=== PATIENT | male | born 1985 | race Caucasian/White ===

== ENCOUNTER 2018-12-14 07:13 | Observation (INO) | payer BC ==
[2018-12-14] MEDS ORDERED: Sodium Chloride 0.9% 1,000 ML IV ONE (07:19)
[2018-12-14] MEDS ORDERED: Ondansetron 4 MG/2 ML SDV ONE (07:19)
[2018-12-14] MEDS ORDERED: Sodium Chloride 0.9% 2.5 ML Syringe FLUSH PRN (07:19)
[2018-12-14] MEDS ORDERED: Sodium Chloride 0.9% 10 ML Syringe FLUSH PRN (07:19)
[2018-12-14] MEDS ORDERED: Ondansetron 4 MG/2 ML SDV IVPUSH ONE (07:19)
[2018-12-14] MEDS ORDERED: Morphine 2 MG/ML Syringe IVPUSH ONE ×2 (07:23→14:44)
[2018-12-14] MEDS ORDERED: Pantoprazole 40 MG Vial IVPUSH ONE (07:23)
--- NOTE | 2018-12-14 07:24 | EDM.PDOC ---
ED HPI GENERAL MEDICAL PROBLEM - General Chief Complaint: Abdominal Pain Stated Complaint: ABDOMINAL PAIN, VOMITING, DIARRHEA Time Seen by Provider: 12/14/18 07:15 - History of Present Illness INITIAL COMMENTS - FREE TEXT/NARRATIVE: HISTORY AND PHYSICAL: History of present illness: The patient is a 33-year-old male who presents with complaints of mid abdominal pain vomiting and diarrhea that started last night. The patient states that he had a normal day yesterday without any systemic issues and he ate fine had a bowel movement had no fevers or chills. He said that last night before bed he started having some mid abdominal pain which was vague and he went to sleep and then he woke up in the middle the night with more severe mid abdominal pain which is across his mid abdomen not localizing right or left high or low associated with nausea vomiting and diarrhea. The diarrhea is watery but it is not black or bloody and the vomitus is also not black or bloody. He did not take anything for this pain nausea vomiting or diarrhea and is only abdominal surgical history is of an umbilical hernia. He has no GI history no history of food intolerance no flank pain and no urinary. He says the pain as a burning pain and he does not feel bloated. Review of systems: As per history of present illness and below otherwise all systems reviewed and negative. Past medical history: As per history of present illness and as reviewed below otherwise noncontributory. Surgical history: As per history of present illness and as reviewed below otherwise noncontributory. Social history: No reported history of drug or alcohol abuse. Family history: As per history of present illness and as reviewed below otherwise noncontributory. Physical exam: General: Well-developed well-nourished overweight man who is nontoxic and vital signs are reviewed by me. Initially on my evaluation he was actively vomiting clear fluid when I went in the room. He looks uncomfortable and is mildly diaphoretic HEENT: Atraumatic, normocephalic, pupils reactive, negative for conjunctival pallor or scleral icterus, mucous membranes moist, throat clear, neck supple, nontender, trachea midline. Lungs: Clear to auscultation, breath sounds equal bilaterally, chest nontender. Heart: S1S2, regular rate and rhythm no overt murmurs Abdomen: Soft, nondistended, no sounds are hyperactive and there is no tympany on percussion. There is moderate mid abdominal tenderness and generalized mild abdominal tenderness without localization right or left high or low. There is no rebound or guarding Negative for masses or hepatosplenomegaly. Negative for costovertebral tenderness. Pelvis: Stable nontender. Genitourinary: Deferred. Rectal: Deferred. Extremities: Atraumatic, negative for cords or calf pain. Neurovascular unremarkable. Neuro: Awake, alert, oriented. Cranial nerves II through XII unremarkable. Cerebellum unremarkable. Motor and sensory unremarkable throughout. Exam nonfocal. Diagnostics: CBC CMP amylase lipase UA with reflex lactic acid CT scan of the abdomen and pelvis Therapeutics: IV fluids Zofran and morphine Protonix fentanyl Flagyl Patient initially still had pain after the morphine but had no more vomiting. The fentanyl obliterated his pain and he is now pain-free and we are currently waiting the CT scan results. The patient has not had any diarrhea here in the ED. 0916: This was discussed with Dr. Delaney; she would like observation admission and a dose of Flagyl. The patient is aware of all testing results and agrees with admission Impression: Abdominal pain with vomiting and diarrhea, acute enteritis, elevated lipase Definitive disposition and diagnosis as appropriate pending reevaluation and review of above. abdominal pain Pain Score (Numeric/FACES): 10 - Related Data Allergies Allergy/AdvReac Type Severity Reaction Status Date / Time No Known Allergies Allergy Verified 12/14/18 07:19 Home Meds: Home Meds . [No Known Home Meds] 12/14/18 [History] ED ROS GENERAL - Review of Systems Review Of Systems: ROS reveals no pertinent complaints other than HPI. ED EXAM, GENERAL - Physical Exam Exam: See Below (See dictation) Course - Vital Signs Last Recorded V/S: Last Vital Signs Temp 35.4 C 12/14/18 07:19 Pulse 88 12/14/18 07:19 Resp 22 H 12/14/18 07:19 BP 161/95 H 12/14/18 07:19 Pulse Ox 98 12/14/18 07:19 - Orders/Labs/Meds Orders: Active Orders 24 hr Category Date Time Status Patient Status [ADT] Stat ADT 12/14/18 09:18 Ordered Sodium Chloride 0.9% [Normal Saline] 1,000 ml Med 12/14/18 09:15 Active IV ASDIRECTED Sodium Chloride 0.9% [Saline Flush] Med 12/14/18 07:19 Active 10 ml FLUSH ASDIRECTED PRN Sodium Chloride 0.9% [Saline Flush] Med 12/14/18 07:19 Active 2.5 ml FLUSH ASDIRECTED PRN metroNIDAZOLE/Normal Saline [Flagyl 500 MG in NS 100 ML Med 12/14/18 09:18 Ordered ] 500 mg Premix Bag 1 bag IV ONETIME Saline Lock Insert [OM.PC] Stat Oth 12/14/18 07:18 Ordered Medication Orders Sodium Chloride (Normal Saline) 1,000 mls @ 150 mls/hr IV ASDIRECTED JANET Last Admin: 12/14/18 09:17 Dose: 150 mls/hr Sodium Chloride (Saline Flush) 10 ml FLUSH ASDIRECTED PRN PRN Reason: Keep Vein Open Sodium Chloride (Saline Flush) 2.5 ml FLUSH ASDIRECTED PRN PRN Reason: Keep Vein Open Labs: Laboratory Tests 12/14/18 12/14/18 12/14/18 Range/Units 07:29 07:29 07:29 WBC 12.23 H (4.0-11.0) K/uL RBC 5.51 (4.50-5.90) M/uL Hgb 17.3 H (13.0-17.0) g/dL Hct 50.6 H (38.0-50.0) % MCV 91.8 (80.0-98.0) fL MCH 31.4 (27.0-32.0) pg MCHC 34.2 (31.0-37.0) g/dL RDW Std Deviation 44.0 (28.0-62.0) fl RDW Coeff of Helen 13 (11.0-15.0) % Plt Count 322 (150-400) K/uL MPV 10.00 (7.40-12.00) fL Add Manual Diff YES Neutrophils % (Manual) 48 (48.0-80.0) % Band Neutrophils % 3 % Lymphocytes % (Manual) 40 (16.0-40.0) % Monocytes % (Manual) 6 (0.0-15.0) % Eosinophils % (Manual) 2 (0.0-7.0) % Basophils % (Manual) 1 (0.0-1.5) % Nucleated RBC % 0.0 /100WBC Absolute Seg Neuts 5.9 H (1.4-5.7) Band Neutrophils # 0.4 Lymphocytes # (Manual) 4.9 H (0.6-2.4) Monocytes # (Manual) 0.7 (0.0-0.8) Eosinophils # (Manual) 0.2 (0.0-0.7) Basophils # (Manual) 0.1 (0.0-0.1) Nucleated RBCs # 0 K/uL Lactate 2.5 H (0.20-2.00) mmol/L Sodium 139 (136-148) mmol/L Potassium 4.0 (3.5-5.1) mmol/L Chloride 103 (98-107) mmol/L Carbon Dioxide 22.5 (21.0-32.0) mmol/L BUN 14 (7.0-18.0) mg/dL Creatinine 1.0 (0.8-1.3) mg/dL Est Cr Clr Drug Dosing 117.63 mL/min Estimated GFR (MDRD) > 60.0 ml/min Glucose 154 H (74-106) mg/dL Calcium 8.7 (8.5-10.1) mg/dL Total Bilirubin 0.2 (0.2-1.0) mg/dL AST 19 (15-37) IU/L ALT 41 (14-63) IU/L Alkaline Phosphatase 72 (46-116) U/L Total Protein 7.9 (6.4-8.2) g/dL Albumin 3.4 (3.4-5.0) g/dL Globulin 4.5 H (2.6-4.0) g/dL Albumin/Globulin Ratio 0.8 L (0.9-1.6) Amylase 75 (25-115) U/L Lipase 939 H (73-393) U/L Urine Color Urine Appearance Urine pH (5.0-8.0) Ur Specific Scott (1.001-1.035) Urine Protein (NEGATIVE) mg/dL Urine Glucose (UA) (NEGATIVE) mg/dL Urine Ketones (NEGATIVE) mg/dL Urine Occult Blood (NEGATIVE) Urine Nitrite (NEGATIVE) Urine Bilirubin (NEGATIVE) Urine Urobilinogen (<2.0) EU/dL Ur Leukocyte Esterase (NEGATIVE) 12/14/18 Range/Units 08:37 WBC (4.0-11.0) K/uL RBC (4.50-5.90) M/uL Hgb (13.0-17.0) g/dL Hct (38.0-50.0) % MCV (80.0-98.0) fL MCH (27.0-32.0) pg MCHC (31.0-37.0) g/dL RDW Std Deviation (28.0-62.0) fl RDW Coeff of Helen (11.0-15.0) % Plt Count (150-400) K/uL MPV (7.40-12.00) fL Add Manual Diff Neutrophils % (Manual) (48.0-80.0) % Band Neutrophils % % Lymphocytes % (Manual) (16.0-40.0) % Monocytes % (Manual) (0.0-15.0) % Eosinophils % (Manual) (0.0-7.0) % Basophils % (Manual) (0.0-1.5) % Nucleated RBC % /100WBC Absolute Seg Neuts (1.4-5.7) Band Neutrophils # Lymphocytes # (Manual) (0.6-2.4) Monocytes # (Manual) (0.0-0.8) Eosinophils # (Manual) (0.0-0.7) Basophils # (Manual) (0.0-0.1) Nucleated RBCs # K/uL Lactate (0.20-2.00) mmol/L Sodium (136-148) mmol/L Potassium (3.5-5.1) mmol/L Chloride (98-107) mmol/L Carbon Dioxide (21.0-32.0) mmol/L BUN (7.0-18.0) mg/dL Creatinine (0.8-1.3) mg/dL Est Cr Clr Drug Dosing mL/min Estimated GFR (MDRD) ml/min Glucose (74-106) mg/dL Calcium (8.5-10.1) mg/dL Total Bilirubin (0.2-1.0) mg/dL AST (15-37) IU/L ALT (14-63) IU/L Alkaline Phosphatase (46-116) U/L Total Protein (6.4-8.2) g/dL Albumin (3.4-5.0) g/dL Globulin (2.6-4.0) g/dL Albumin/Globulin Ratio (0.9-1.6) Amylase (25-115) U/L Lipase (73-393) U/L Urine Color YELLOW Urine Appearance CLEAR Urine pH 5.0 (5.0-8.0) Ur Specific Scott 1.025 (1.001-1.035) Urine Protein NEGATIVE (NEGATIVE) mg/dL Urine Glucose (UA) NEGATIVE (NEGATIVE) mg/dL Urine Ketones NEGATIVE (NEGATIVE) mg/dL Urine Occult Blood NEGATIVE (NEGATIVE) Urine Nitrite NEGATIVE (NEGATIVE) Urine Bilirubin NEGATIVE (NEGATIVE) Urine Urobilinogen 0.2 (<2.0) EU/dL Ur Leukocyte Esterase NEGATIVE (NEGATIVE) Meds: Medications Generic Name Dose Route Start Last Admin Trade Name Freq PRN Reason Stop Dose Admin Sodium Chloride 1,000 mls @ 150 mls/hr 12/14/18 09:15 12/14/18 09:17 Normal Saline IV 150 mls/hr ASDIRECTED JANET Administration Sodium Chloride 10 ml 12/14/18 07:19 Saline Flush FLUSH ASDIRECTED PRN Keep Vein Open Sodium Chloride 2.5 ml 12/14/18 07:19 Saline Flush FLUSH ASDIRECTED PRN Keep Vein Open Discontinued Medications Generic Name Dose Route Start Last Admin Trade Name Freq PRN Reason Stop Dose Admin Fentanyl 50 mcg 12/14/18 08:00 12/14/18 08:06 Sublimaze IVPUSH 12/14/18 08:01 50 mcg ONETIME ONE Administration Sodium Chloride 1,000 mls @ 999 mls/hr 12/14/18 07:19 12/14/18 07:38 Normal Saline IV 12/14/18 08:19 999 mls/hr STAT ONE Administration Sodium Chloride Confirm 12/14/18 07:31 Normal Saline Administered 12/14/18 07:32 Dose 20 mls @ as directed .ROUTE .STK-MED ONE Iopamidol 100 ml 12/14/18 08:26 12/14/18 08:26 Isovue Multipack-370 (76%) IVPUSH 12/14/18 08:27 100 ml ONETIME STA Administration Morphine Sulfate 4 mg 12/14/18 07:23 12/14/18 07:35 Morphine IVPUSH 12/14/18 07:24 4 mg ONETIME ONE Administration Ondansetron HCl 4 mg 12/14/18 07:19 12/14/18 07:38 Zofran IVPUSH 12/14/18 07:20 4 mg ONETIME ONE Administration Ondansetron HCl Confirm 12/14/18 07:19 12/14/18 07:55 Zofran Administered 12/14/18 07:20 Not Given Dose 4 mg .ROUTE .STK-MED ONE Pantoprazole Sodium 80 mg 12/14/18 07:23 12/14/18 07:35 Protonix Iv IVPUSH 12/14/18 07:24 80 mg .BOLUS ONE Administration Departure - Departure Time of Disposition: 09:20 Disposition: Refer to Observation Condition: Good Clinical Impression: Enteritis, Elevated lipase - Discharge Information Referrals: PCP,None [Primary Care Provider] - Forms: ED Department Discharge - My Orders Last 24 Hours: My Active Orders 12/14/18 07:18 Saline Lock Insert [OM.PC] Stat 12/14/18 07:19 Sodium Chloride 0.9% [Saline Flush] 10 ml FLUSH ASDIRECTED PRN Sodium Chloride 0.9% [Saline Flush] 2.5 ml FLUSH ASDIRECTED PRN 12/14/18 09:15 Sodium Chloride 0.9% [Normal Saline] 1,000 ml IV ASDIRECTED 12/14/18 09:18 Patient Status [ADT] Stat metroNIDAZOLE/Normal Saline [Flagyl 500 MG in NS 100 ML] 500 mg Premix Bag 1 bag IV ONETIME - Assessment/Plan Last 24 Hours: My Active Orders 12/14/18 07:18 Saline Lock Insert [OM.PC] Stat 12/14/18 07:19 Sodium Chloride 0.9% [Saline Flush] 10 ml FLUSH ASDIRECTED PRN Sodium Chloride 0.9% [Saline Flush] 2.5 ml FLUSH ASDIRECTED PRN 12/14/18 09:15 Sodium Chloride 0.9% [Normal Saline] 1,000 ml IV ASDIRECTED 12/14/18 09:18 Patient Status [ADT] Stat metroNIDAZOLE/Normal Saline [Flagyl 500 MG in NS 100 ML] 500 mg Premix Bag 1 bag IV ONETIME
[2018-12-14] MEDS ORDERED: Sodium Chloride 0.9% 20 ML ONE (07:31)
[2018-12-14 07:52] LABS: BLOOD UREA NITROGEN,BUN 14 mg/dL (7.0-18.0); CARBON DIOXIDE,CO2 22.5 mmol/L (21.0-32.0); CHLORIDE,CL 103 mmol/L (98-107); GLUCOSE RANDOM 154 mg/dL (74-106); LIPASE 939 U/L (73-393); SODIUM,NA 139 mmol/L (136-148)
[2018-12-14] MEDS ORDERED: fentaNYL 100 MCG/2 ML SDV IVPUSH ONE (08:00)
[2018-12-14] MEDS ORDERED: Iopamidol 755 MG/ML 500 ML Multipack Bottle IVPUSH STA (08:26)
--- NOTE | 2018-12-14 09:10 | CT ---
INDICATION: Pain. Vomiting. Diarrhea. TECHNIQUE: CT of the abdomen and pelvis performed after IV injection of 100 mL of Isovue-370. FINDINGS: Mild soft tissue prominence in the right breast partially visualized and could be related to gynecomastia measuring 1.8 cm on image 1. This could be correlated clinically. Moderate diffuse fatty infiltration of liver. Mild adenopathy in the portacaval, philipp hepatis and right celiac axis region nonspecific. Small amount of free fluid in the pelvis posteriorly is abnormal in a male patient. The appendix is normal. Small amounts of fluid and hazy edematous or inflammatory stranding in the abdominal and pelvic mesentery. This is predominantly seen about scattered mildly thick-walled normal caliber to mildly dilated small bowel loops ranging up to 3.3 cm in diameter. The small bowel more distally is normal to small in caliber. Findings would suggest a mild acute enteritis which could be infectious or inflammatory given the patient`s age. Schema enteritis would be unlikely in a patient of this age. I would favor the mild prominence of the small bowel being related to an ileus rather than early obstruction. Focal irregularity involving the periumbilical anterior abdominal wall may be related prior surgery. Remainder negative. IMPRESSION: 1. Small to mildly dilated small bowel loops in the abdomen and pelvis with mild wall thickening with surrounding edematous and inflammatory hazy increased density in the mesentery as well as a very small amount of free fluid in the abdomen and pelvis including the mesenteric findings would be consistent with an acute enteritis. I suspect there is a superimposed very mild small bowel ileus rather than a partial small bowel obstruction. Acute infectious or inflammatory enteritis is strongly favored. 2. Small amount of nodular density partially visualized in the right breast could be related to gynecomastia but can be correlated clinically. 3. Mild adenopathy right mid and upper abdomen. Other findings as above. Please note that all CT scans at this facility use dose modulation, iterative reconstruction, and/or weight-based dosing when appropriate to reduce radiation dose to as low as reasonably achievable. Dictated by James Collado MD @ Dec 14 2018 9:07AM Signed by Dr. James Collado @ Dec 14 2018 9:09AM
[2018-12-14] MEDS: Sodium Chloride 0.9% 1,000 ML IV SCH ×2 (09:17→16:04)
[2018-12-14] MEDS ORDERED: metroNIDAZOLE/Normal Saline 500 MG in Premix Bag 1 BAG IV ONE (09:18)
--- NOTE | 2018-12-14 10:38 | PCM.HP.2 ---
H&P History of Present Illness - General Date of Service: 12/14/18 Admit Problem/Dx: Admission Diagnosis/Problem Admission Diagnosis/Problem Enteritis Source of Information: Patient History Limitations: Reports: No Limitations - History of Present Illness Initial Comments - Free Text/Narative: Patient is a 33 y/o M who comes in with c/o abdominal pain since last night which got worse this AM. Patient states that he has been experiencing diarrhea for last 1 week now, everything he ate he would experience watery diarrhea. Patient states that he experienced severe poain in his lower abdomen today associated with Nausea, vomiting and Diaphoresis. Denied any bloody stools, weight loss. In ER CT scan abdomen showed Enteritis. Patient denied being drinker but reported had bimng drinking episode 1 week back during a green party. Patient received IVF and IV antibiotics in ER. Patient is being admitted for further management. Onset of Symptoms: Reports: Unknown/Unsure Duration of Symptoms: Reports: Day(s):, Improving Location: Reports: Abdomen Quality: Reports: Sharp, Throbbing abdominal pain Pain Score (Numeric/FACES): 10 - Related Data Allergies/Adverse Reactions: Allergies Allergy/AdvReac Type Severity Reaction Status Date / Time No Known Allergies Allergy Verified 12/14/18 09:55 Home Medications: Home Meds . [No Known Home Meds] 12/14/18 [History] Past Medical History HEENT History: Reports: None Cardiovascular History: Reports: Hypertension Respiratory History: Reports: Sleep Apnea Genitourinary History: Reports: None Musculoskeletal History: Reports: None Neurological History: Reports: None Psychiatric History: Reports: None Endocrine/Metabolic History: Reports: None Hematologic History: Reports: None Immunologic History: Reports: None Oncologic (Cancer) History: Reports: None Dermatologic History: Reports: None - Infectious Disease History Infectious Disease History: Reports: None - Past Surgical History HEENT Surgical History: Reports: None Cardiovascular Surgical History: Reports: None Respiratory Surgical History: Reports: None GI Surgical History: Reports: Hernia, Abdominal Male Surgical History: Reports: None Endocrine Surgical History: Reports: None Neurological Surgical History: Reports: None Musculoskeletal Surgical History: Reports: None Oncologic Surgical History: Reports: None Dermatological Surgical History: Reports: None Social & Family History - Family History Family Medical History: Noncontributory - Tobacco Use Smoking Status *Q: Former Smoker Years of Tobacco use: 1 Used Tobacco, but Quit: Yes Month/Year Tobacco Last Used: 2008 Second Hand Smoke Exposure: Yes - Caffeine Use Caffeine Use: Reports: Coffee, Energy Drinks, Soda, Tea - Recreational Drug Use Recreational Drug Use: No H&P Review of Systems - Review of Systems: Review Of Systems: ROS reveals no pertinent complaints other than HPI. Exam - Exam Exam: See Below - Vital Signs Vital Signs: Last Vital Signs Temp 36.1 C 12/14/18 09:28 Pulse 82 12/14/18 09:28 Resp 18 12/14/18 09:28 BP 125/54 L 12/14/18 09:28 Pulse Ox 96 12/14/18 09:28 Weight: 178.534 kg - Exam General: Alert, Oriented HEENT: Conjunctiva Clear, Mucosa Moist & [place] Neck: Supple, Trachea Midline Lungs: Clear to Auscultation, Normal Respiratory Effort Cardiovascular: Regular Rate, Regular Rhythm GI/Abdominal Exam: Normal Bowel Sounds, Soft, Distended (obese ), Tender (mild tenderness) Extremities: Normal Inspection, Normal Range of Motion Peripheral Pulses: 3+: Dorsalis Pedis (L), Dorsalis Pedis (R) Skin: Warm, Dry - Patient Data Lab Results Last 24 hrs: Laboratory Results - last 24 hr 12/14/18 12/14/18 12/14/18 Range/Units 07:29 07:29 07:29 WBC 12.23 H (4.0-11.0) K/uL RBC 5.51 (4.50-5.90) M/uL Hgb 17.3 H (13.0-17.0) g/dL Hct 50.6 H (38.0-50.0) % MCV 91.8 (80.0-98.0) fL MCH 31.4 (27.0-32.0) pg MCHC 34.2 (31.0-37.0) g/dL RDW Std Deviation 44.0 (28.0-62.0) fl RDW Coeff of Helen 13 (11.0-15.0) % Plt Count 322 (150-400) K/uL MPV 10.00 (7.40-12.00) fL Add Manual Diff YES Neutrophils % (Manual) 48 (48.0-80.0) % Band Neutrophils % 3 % Lymphocytes % (Manual) 40 (16.0-40.0) % Monocytes % (Manual) 6 (0.0-15.0) % Eosinophils % (Manual) 2 (0.0-7.0) % Basophils % (Manual) 1 (0.0-1.5) % Nucleated RBC % 0.0 /100WBC Absolute Seg Neuts 5.9 H (1.4-5.7) Band Neutrophils # 0.4 Lymphocytes # (Manual) 4.9 H (0.6-2.4) Monocytes # (Manual) 0.7 (0.0-0.8) Eosinophils # (Manual) 0.2 (0.0-0.7) Basophils # (Manual) 0.1 (0.0-0.1) Nucleated RBCs # 0 K/uL Lactate 2.5 H (0.20-2.00) mmol/L Sodium 139 (136-148) mmol/L Potassium 4.0 (3.5-5.1) mmol/L Chloride 103 (98-107) mmol/L Carbon Dioxide 22.5 (21.0-32.0) mmol/L BUN 14 (7.0-18.0) mg/dL Creatinine 1.0 (0.8-1.3) mg/dL Est Cr Clr Drug Dosing 117.63 mL/min Estimated GFR (MDRD) > 60.0 ml/min Glucose 154 H (74-106) mg/dL Calcium 8.7 (8.5-10.1) mg/dL Total Bilirubin 0.2 (0.2-1.0) mg/dL AST 19 (15-37) IU/L ALT 41 (14-63) IU/L Alkaline Phosphatase 72 (46-116) U/L Total Protein 7.9 (6.4-8.2) g/dL Albumin 3.4 (3.4-5.0) g/dL Globulin 4.5 H (2.6-4.0) g/dL Albumin/Globulin Ratio 0.8 L (0.9-1.6) Amylase 75 (25-115) U/L Lipase 939 H (73-393) U/L Urine Color Urine Appearance Urine pH (5.0-8.0) Ur Specific Morrison (1.001-1.035) Urine Protein (NEGATIVE) mg/dL Urine Glucose (UA) (NEGATIVE) mg/dL Urine Ketones (NEGATIVE) mg/dL Urine Occult Blood (NEGATIVE) Urine Nitrite (NEGATIVE) Urine Bilirubin (NEGATIVE) Urine Urobilinogen (<2.0) EU/dL Ur Leukocyte Esterase (NEGATIVE) 12/14/18 Range/Units 08:37 WBC (4.0-11.0) K/uL RBC (4.50-5.90) M/uL Hgb (13.0-17.0) g/dL Hct (38.0-50.0) % MCV (80.0-98.0) fL MCH (27.0-32.0) pg MCHC (31.0-37.0) g/dL RDW Std Deviation (28.0-62.0) fl RDW Coeff of Helen (11.0-15.0) % Plt Count (150-400) K/uL MPV (7.40-12.00) fL Add Manual Diff Neutrophils % (Manual) (48.0-80.0) % Band Neutrophils % % Lymphocytes % (Manual) (16.0-40.0) % Monocytes % (Manual) (0.0-15.0) % Eosinophils % (Manual) (0.0-7.0) % Basophils % (Manual) (0.0-1.5) % Nucleated RBC % /100WBC Absolute Seg Neuts (1.4-5.7) Band Neutrophils # Lymphocytes # (Manual) (0.6-2.4) Monocytes # (Manual) (0.0-0.8) Eosinophils # (Manual) (0.0-0.7) Basophils # (Manual) (0.0-0.1) Nucleated RBCs # K/uL Lactate (0.20-2.00) mmol/L Sodium (136-148) mmol/L Potassium (3.5-5.1) mmol/L Chloride (98-107) mmol/L Carbon Dioxide (21.0-32.0) mmol/L BUN (7.0-18.0) mg/dL Creatinine (0.8-1.3) mg/dL Est Cr Clr Drug Dosing mL/min Estimated GFR (MDRD) ml/min Glucose (74-106) mg/dL Calcium (8.5-10.1) mg/dL Total Bilirubin (0.2-1.0) mg/dL AST (15-37) IU/L ALT (14-63) IU/L Alkaline Phosphatase (46-116) U/L Total Protein (6.4-8.2) g/dL Albumin (3.4-5.0) g/dL Globulin (2.6-4.0) g/dL Albumin/Globulin Ratio (0.9-1.6) Amylase (25-115) U/L Lipase (73-393) U/L Urine Color YELLOW Urine Appearance CLEAR Urine pH 5.0 (5.0-8.0) Ur Specific [place] 1.025 (1.001-1.035) Urine Protein NEGATIVE (NEGATIVE) mg/dL Urine Glucose (UA) NEGATIVE (NEGATIVE) mg/dL Urine Ketones NEGATIVE (NEGATIVE) mg/dL Urine Occult Blood NEGATIVE (NEGATIVE) Urine Nitrite NEGATIVE (NEGATIVE) Urine Bilirubin NEGATIVE (NEGATIVE) Urine Urobilinogen 0.2 (<2.0) EU/dL Ur Leukocyte Esterase NEGATIVE (NEGATIVE) Result Diagrams: 12/14/18 07:29 12/14/18 07:29 *Q Meaningful Use (ADM) - VTE Risk Assess *Q Each Risk Factor Represents 1 Point: Obesity ( BMI > 25 kg/m2) Total Score 1 Point Risk Factors: 1 - Problem List (1) Enteritis SNOMED Code(s): 12375990 ICD Code: K52.9 - NONINFECTIVE GASTROENTERITIS AND COLITIS, UNSPECIFIED Status: Acute Current Visit: Yes (2) Polycythemia SNOMED Code(s): 480484880 ICD Code: D75.1 - SECONDARY POLYCYTHEMIA Status: Acute Current Visit: Yes (3) LUIS (obstructive sleep apnea) SNOMED Code(s): 50609898 ICD Code: G47.33 - OBSTRUCTIVE SLEEP APNEA (ADULT) (PEDIATRIC) Status: Acute Current Visit: Yes Problem List Initiated/Reviewed/Updated: Yes Orders Last 24hrs: Active Orders 24 hr Category Date Time Status Patient Status [ADT] Stat ADT 12/14/18 09:18 Active Sodium Chloride 0.9% [Normal Saline] 1,000 ml Med 12/14/18 09:15 Active IV ASDIRECTED Sodium Chloride 0.9% [Saline Flush] Med 12/14/18 07:19 Active 10 ml FLUSH ASDIRECTED PRN Sodium Chloride 0.9% [Saline Flush] Med 12/14/18 07:19 Active 2.5 ml FLUSH ASDIRECTED PRN Saline Lock Insert [OM.PC] Stat Oth 12/14/18 07:18 Ordered Medication Orders Sodium Chloride (Normal Saline) 1,000 mls @ 150 mls/hr IV ASDIRECTED [facility] Last Admin: 12/14/18 09:17 Dose: 150 mls/hr Sodium Chloride (Saline Flush) 10 ml FLUSH ASDIRECTED PRN PRN Reason: Keep Vein Open Sodium Chloride (Saline Flush) 2.5 ml FLUSH ASDIRECTED PRN PRN Reason: Keep Vein Open Assessment/Plan Comment:: Patient comes in with c/o abdominal pain, N/V CT scan showed findings concerning for Enteritis NPO for now Patient will be continued on Metronidazole Will cont IVF Will obtain stool studies Start IV PPI Start IV ondansetron Lactate has cleared Concern for mesenteric ischemia, given patient takes testosterone and has polycythemia, higher risk for clots. Spoke to radiologist, he doesn't see any apparent arterial occlusion Will cont to monitor if abdominal pain worsens will obtain CTA abdomen cont to monitor closely CPAP at night
[2018-12-14] MEDS ORDERED: Albuterol/Ipratropium 3.0-0.5 MG/3 ML Neb Soln NEB PRN (12:02)
[2018-12-14] MEDS ORDERED: Ondansetron 4 MG/2 ML SDV IVPUSH PRN (12:12)
[2018-12-14] MEDS: Heparin Sodium 5,000 Units/ML Vial SUBCUT SCH ×2 (12:58→22:00)
[2018-12-14] MEDS: Pantoprazole 40 MG in Sodium Chloride 0.9% 10 ML IV SCH (12:59)
[2018-12-14 21:31] LABS: HEMOGLOBIN A1C 6.2 % (4.5-6.2)
[2018-12-14] MEDS: metroNIDAZOLE/Normal Saline 500 MG in Premix Bag 1 BAG IV SCH (22:00)
[2018-12-15] MEDS: Sodium Chloride 0.9% 1,000 ML IV SCH ×2 (01:04→10:05)
[2018-12-15] MEDS: Heparin Sodium 5,000 Units/ML Vial SUBCUT SCH ×2 (05:25→12:54)
[2018-12-15] MEDS: metroNIDAZOLE/Normal Saline 500 MG in Premix Bag 1 BAG IV SCH ×2 (05:25→14:02)
[2018-12-15 05:49] LABS: BLOOD UREA NITROGEN,BUN 17 mg/dL (7.0-18.0); CARBON DIOXIDE,CO2 26.8 mmol/L (21.0-32.0); CHLORIDE,CL 105 mmol/L (98-107); GLUCOSE RANDOM 131 mg/dL (74-106); LIPASE 112 U/L (73-393); POTASSIUM,K 3.9 mmol/L (3.5-5.1); SODIUM,NA 139 mmol/L (136-148)
[2018-12-15] MEDS ORDERED: Magnesium Oxide 400 MG Tab PO ONE (09:05)
--- NOTE | 2018-12-15 10:02 | PCM.PN ---
- General Info Date of Service: 12/15/18 Admission Dx/Problem (Free Text): Admission Diagnosis/Problem Admission Diagnosis/Problem Enteritis Subjective Update: Patient seen at bedside. No complaints, feels hungry and wants to eat. Functional Status: Reports: Pain Controlled, Tolerating Diet, Urinating - Review of Systems General: Denies: Fever, Weakness HEENT: Denies: Dysphasia, Rhinitis Pulmonary: Denies: Shortness of Breath, Pleuritic Chest Pain Cardiovascular: Denies: Chest Pain, Palpitations Gastrointestinal: Reports: Nausea. Denies: Abdominal Pain, Decreased Appetite, Diarrhea Genitourinary: Denies: Frequency, Burning Musculoskeletal: Denies: Shoulder Pain, Arm Pain, Hand Pain Skin: Denies: Cyanosis, Jaundice, Mottled - Patient Data Vitals - Most Recent: Last Vital Signs Temp 36.6 C 12/15/18 04:00 Pulse 66 12/15/18 04:00 Resp 18 12/15/18 04:00 BP 136/71 12/15/18 04:00 Pulse Ox 96 12/15/18 04:00 Weight - Most Recent: 178.534 kg I&O - Last 24 Hours: Intake & Output 12/14/18 12/15/18 12/15/18 22:59 06:59 14:59 Intake Total 755 170 Output Total 575 475 Balance 180 -305 Lab Results Last 24 Hours: Laboratory Results - last 24 hr 12/14/18 12/14/18 12/15/18 Range/Units 07:29 11:47 05:15 WBC 8.56 (4.0-11.0) K/uL RBC 4.50 (4.50-5.90) M/uL Hgb 13.8 (13.0-17.0) g/dL Hct 42.6 (38.0-50.0) % MCV 94.7 (80.0-98.0) fL MCH 30.7 (27.0-32.0) pg MCHC 32.4 (31.0-37.0) g/dL RDW Std Deviation 46.2 (28.0-62.0) fl RDW Coeff of Helen 13 (11.0-15.0) % Plt Count 250 (150-400) K/uL MPV 9.80 (7.40-12.00) fL Neut % (Auto) 55.2 (48.0-80.0) % Lymph % (Auto) 27.9 (16.0-40.0) % [place] % (Auto) 5.4 (0.0-15.0) % Eos % (Auto) 11.3 H (0.0-7.0) % Baso % (Auto) 0.2 (0.0-1.5) % Neut # (Auto) 4.7 (1.4-5.7) K/uL Lymph # (Auto) 2.4 (0.6-2.4) K/uL [place] # (Auto) 0.5 (0.0-0.8) K/uL Eos # (Auto) 1.0 H (0.0-0.7) K/uL Baso # (Auto) 0.0 (0.0-0.1) K/uL Nucleated RBC % 0.0 /100WBC Nucleated RBCs # 0 K/uL Lactate 1.9 (0.20-2.00) mmol/L Sodium (136-148) mmol/L Potassium (3.5-5.1) mmol/L Chloride (98-107) mmol/L Carbon Dioxide (21.0-32.0) mmol/L BUN (7.0-18.0) mg/dL Creatinine (0.8-1.3) mg/dL Est Cr Clr Drug Dosing mL/min Estimated GFR (MDRD) ml/min Glucose (74-106) mg/dL Hemoglobin A1c 6.2 (4.5-6.2) % Calcium (8.5-10.1) mg/dL Phosphorus (2.6-4.7) mg/dL Magnesium (1.8-2.4) mg/dL Triglycerides (0-200) mg/dL Cholesterol (50-200) mg/dL LDL Cholesterol, Calc (60-180) mg/dL VLDL Cholesterol (5-55) mg/dL HDL Cholesterol (40-60) mg/dL Cholesterol/HDL Ratio (3.3-6.0) Lipase (73-393) U/L 12/15/18 Range/Units 05:15 WBC (4.0-11.0) K/uL RBC (4.50-5.90) M/uL Hgb (13.0-17.0) g/dL Hct (38.0-50.0) % MCV (80.0-98.0) fL MCH (27.0-32.0) pg MCHC (31.0-37.0) g/dL RDW Std Deviation (28.0-62.0) fl RDW Coeff of Helen (11.0-15.0) % Plt Count (150-400) K/uL MPV (7.40-12.00) fL Neut % (Auto) (48.0-80.0) % Lymph % (Auto) (16.0-40.0) % [place] % (Auto) (0.0-15.0) % Eos % (Auto) (0.0-7.0) % Baso % (Auto) (0.0-1.5) % Neut # (Auto) (1.4-5.7) K/uL Lymph # (Auto) (0.6-2.4) K/uL [place] # (Auto) (0.0-0.8) K/uL Eos # (Auto) (0.0-0.7) K/uL Baso # (Auto) (0.0-0.1) K/uL Nucleated RBC % /100WBC Nucleated RBCs # K/uL Lactate (0.20-2.00) mmol/L Sodium 139 (136-148) mmol/L Potassium 3.9 (3.5-5.1) mmol/L Chloride 105 (98-107) mmol/L Carbon Dioxide 26.8 (21.0-32.0) mmol/L BUN 17 (7.0-18.0) mg/dL Creatinine 1.0 (0.8-1.3) mg/dL Est Cr Clr Drug Dosing 117.63 mL/min Estimated GFR (MDRD) > 60.0 ml/min Glucose 131 H (74-106) mg/dL Hemoglobin A1c (4.5-6.2) % Calcium 8.2 L (8.5-10.1) mg/dL Phosphorus 3.9 (2.6-4.7) mg/dL Magnesium 1.7 L (1.8-2.4) mg/dL Triglycerides 309 H (0-200) mg/dL Cholesterol 179 (50-200) mg/dL LDL Cholesterol, Calc 90 (60-180) mg/dL VLDL Cholesterol 61 H (5-55) mg/dL HDL Cholesterol 27 L (40-60) mg/dL Cholesterol/HDL Ratio 6.6 H (3.3-6.0) Lipase 112 (73-393) U/L Med Orders - Current: Current Medications Albuterol/Ipratropium (Duoneb 3.0-0.5 Mg/3 Ml) 3 ml NEB Q4HRRT PRN PRN Reason: Shortness Of Breath/wheezing Heparin Sodium (Porcine) (Heparin Sodium) 5,000 units SUBCUT Q8H [facility] Last Admin: 12/15/18 05:25 Dose: 5,000 units Sodium Chloride (Normal Saline) 1,000 mls @ 125 mls/hr IV ASDIRECTED [facility] Last Admin: 12/15/18 01:04 Dose: 150 mls/hr Pantoprazole Sodium 40 mg/ (Sodium Chloride) 10 mls @ 300 mls/hr IV DAILY [facility] Last Admin: 12/14/18 12:59 Dose: 300 mls/hr Metronidazole 500 mg/ Premix 100 mls @ 100 mls/hr IV Q8H [facility] Last Admin: 12/15/18 05:25 Dose: 100 mls/hr Ondansetron HCl (Zofran) 4 mg IVPUSH Q6H PRN PRN Reason: Nausea/Vomiting Sodium Chloride (Saline Flush) 10 ml FLUSH ASDIRECTED PRN PRN Reason: Keep Vein Open Sodium Chloride (Saline Flush) 2.5 ml FLUSH ASDIRECTED PRN PRN Reason: Keep Vein Open Discontinued Medications Fentanyl (Sublimaze) 50 mcg IVPUSH ONETIME ONE Stop: 12/14/18 08:01 Last Admin: 12/14/18 08:06 Dose: 50 mcg Sodium Chloride (Normal Saline) 1,000 mls @ 999 mls/hr IV STAT ONE Stop: 12/14/18 08:19 Last Admin: 12/14/18 07:38 Dose: 999 mls/hr Sodium Chloride (Normal Saline) Confirm Administered Dose 20 mls @ as directed .ROUTE .STK-MED ONE Stop: 12/14/18 07:32 Last Admin: 12/14/18 10:42 Dose: Not Given Metronidazole 500 mg/ Premix 100 mls @ 100 mls/hr IV ONETIME ONE Stop: 12/14/18 10:17 Last Admin: 12/14/18 09:25 Dose: 100 mls/hr Metronidazole 500 mg/ Premix 100 mls @ 100 mls/hr IV QID JANET Iopamidol (Isovue Multipack-370 (76%)) 100 ml IVPUSH ONETIME STA Stop: 12/14/18 08:27 Last Admin: 12/14/18 08:26 Dose: 100 ml Magnesium Oxide (Magnesium Oxide) 400 mg PO ONETIME ONE Stop: 12/15/18 09:06 Morphine Sulfate (Morphine) 4 mg IVPUSH ONETIME ONE Stop: 12/14/18 07:24 Last Admin: 12/14/18 07:35 Dose: 4 mg Morphine Sulfate (Morphine) 1 mg IVPUSH ONETIME ONE Stop: 12/14/18 14:45 Last Admin: 12/14/18 14:53 Dose: 1 mg Ondansetron HCl (Zofran) 4 mg IVPUSH ONETIME ONE Stop: 12/14/18 07:20 Last Admin: 12/14/18 07:38 Dose: 4 mg Ondansetron HCl (Zofran) Confirm Administered Dose 4 mg .ROUTE .STK-MED ONE Stop: 12/14/18 07:20 Last Admin: 12/14/18 07:55 Dose: Not Given Pantoprazole Sodium (Protonix Iv) 80 mg IVPUSH .BOLUS ONE Stop: 12/14/18 07:24 Last Admin: 12/14/18 07:35 Dose: 80 mg - Exam General: Alert, Oriented HEENT: Mucous Membr. Moist/[place] Neck: Supple, Trachea Midline Lungs: Clear to Auscultation, Normal Respiratory Effort Cardiovascular: Regular Rate, Regular Rhythm GI/Abdominal Exam: Normal Bowel Sounds, Soft, Non-Tender, No Organomegaly Peripheral Pulses: 3+: Dorsalis Pedis (L), Dorsalis Pedis (R) Skin: Warm, Dry - Problem List & Annotations (1) Enteritis SNOMED Code(s): 09906887 Code(s): K52.9 - NONINFECTIVE GASTROENTERITIS AND COLITIS, UNSPECIFIED Status: Acute Current Visit: Yes (2) Polycythemia SNOMED Code(s): 040793255 Code(s): D75.1 - SECONDARY POLYCYTHEMIA Status: Acute Current Visit: Yes (3) LUIS (obstructive sleep apnea) SNOMED Code(s): 44964047 Code(s): G47.33 - OBSTRUCTIVE SLEEP APNEA (ADULT) (PEDIATRIC) Status: Acute Current Visit: Yes - Problem List Review Problem List Initiated/Reviewed/Updated: Yes - My Orders Last 24 Hours: My Active Orders 12/14/18 12:02 Ambulate [RC] ASDIRECTED Oxygen Therapy [RC] PRN VTE/DVT Education [RC] PER UNIT ROUTINE Vital Signs [RC] Q4H Albuterol/Ipratropium [DuoNeb 3.0-0.5 MG/3 ML] 3 ml NEB Q4HRRT PRN Resuscitation Status Routine 12/14/18 12:09 RT Aerosol Therapy [RC] ASDIRECTED 12/14/18 12:12 Ondansetron [Zofran] 4 mg IVPUSH Q6H PRN 12/14/18 12:14 Pantoprazole [ProTONIX IV] 40 mg Sodium Chloride 0.9% [Normal Saline] 10 ml IV DAILY 12/14/18 12:15 Heparin Sodium 5,000 units SUBCUT Q8H 12/14/18 18:20 Communication Order [RC] PRN 12/14/18 21:00 CPAP [RESPCARE] Routine 12/14/18 22:00 metroNIDAZOLE/Normal Saline [Flagyl 500 MG in NS 100 ML] 500 mg Premix Bag 1 bag IV Q8H 12/14/18 Dinner Nothing per Oral Now Diet [DIET] - Plan Plan:: Patient comes in with c/o abdominal pain, N/V CT scan showed findings concerning for Enteritis symptoms improving Will advance diet Cont IVF for now Switch to oral metro Stool studies pending cont PPI cont ondansetron Lactate has cleared Concern for mesenteric ischemia, given patient takes testosterone and has polycythemia, higher risk for clots. Spoke to radiologist, he doesn't see any apparent arterial occlusion Will cont to monitor if abdominal pain worsens will obtain CTA abdomen cont to monitor closely CPAP at night If tolerates diet will d/c later today
[2018-12-15] MEDS: Pantoprazole 40 MG in Sodium Chloride 0.9% 10 ML IV SCH (10:10)
[2018-12-15] MEDS ORDERED: Ondansetron 4 MG/2 ML SDV IVPUSH PRN (10:45)
--- NOTE | 2018-12-15 14:56 | PCM.DCSUM1 ---
Discharge Summary - Hospital Course HPI Initial Comments: Patient is a 33 y/o M who comes in with c/o abdominal pain since last night which got worse this AM. Patient states that he has been experiencing diarrhea for last 1 week now, everything he ate he would experience watery diarrhea. Patient states that he experienced severe pain in his lower abdomen today associated with Nausea, vomiting and Diaphoresis. Denied any bloody stools, weight loss. In ER CT scan abdomen showed Enteritis. Patient denied being drinker but reported had demarco drinking episode 1 week back during a green party. Patient received IVF and IV antibiotics in ER. Patient is being admitted for further management. Diagnosis: Stroke: No - Discharge Data Discharge Date: 12/15/18 Discharge Disposition: Home, Self-Care 01 Condition: Fair - Referral to Home Health Primary Care Physician: PCP None - Discharge Diagnosis/Problem(s) (1) Enteritis SNOMED Code(s): 16231412 ICD Code: K52.9 - NONINFECTIVE GASTROENTERITIS AND COLITIS, UNSPECIFIED Status: Acute Current Visit: Yes (2) Polycythemia SNOMED Code(s): 444064065 ICD Code: D75.1 - SECONDARY POLYCYTHEMIA Status: Acute Current Visit: Yes (3) LUIS (obstructive sleep apnea) SNOMED Code(s): 01004012 ICD Code: G47.33 - OBSTRUCTIVE SLEEP APNEA (ADULT) (PEDIATRIC) Status: Acute Current Visit: Yes - Patient Instructions Diet: GI Soft/Low Residue/Low Fiber Activity: As Tolerated, Rest and Relax Today Driving: May Drive Today Showering/Bathing: May Shower Notify Provider of: Nausea and/or Vomiting - Discharge Plan *PRESCRIPTION DRUG MONITORING PROGRAM REVIEWED*: Not Applicable *COPY OF PRESCRIPTION DRUG MONITORING REPORT IN PATIENT SHIRA: Not Applicable Prescriptions/Med Rec: metroNIDAZOLE [Flagyl] 500 mg PO Q8H 5 Days #14 tab Ondansetron [Zofran ODT] 4 mg PO Q8H PRN #5 tab.dis PRN Reason: Nausea/Vomiting Pantoprazole [ProTONIX] 40 mg PO DAILY #15 tab.cr Home Medications: Home Meds Ondansetron [Zofran ODT] 4 mg PO Q8H PRN #5 tab.dis 12/15/18 [Rx] Pantoprazole [ProTONIX] 40 mg PO DAILY #15 tab.cr 12/15/18 [Rx] metroNIDAZOLE [Flagyl] 500 mg PO Q8H 5 Days #14 tab 12/15/18 [Rx] Patient Handouts: Ondansetron tablets, Food Choices to Help Relieve Diarrhea, Adult, Abdominal Pain, Adult, [id number], Pantoprazole tablets, Metronidazole tablets or capsules Referrals: Shyla Moffett MD [Resident] - 12/24/18 3:00 pm - Discharge Summary/Plan Comment DC Time >30 min.: Yes Discharge Summary/Plan Comment: Patient is a 33 y/o M who comes in with c/o abdominal pain since last night which got worse this AM. Patient states that he has been experiencing diarrhea for last 1 week now, everything he ate he would experience watery diarrhea. Patient states that he experienced severe pain in his lower abdomen today associated with Nausea, vomiting and Diaphoresis. Denied any bloody stools, weight loss. In ER CT scan abdomen showed Enteritis. Patient denied being drinker but reported had demarco drinking episode 1 week back during a green party. Lipase was elevated. Patient received IVF and IV antibiotics in ER. Patient was admitted to Med-Surg department for management of pancreatitis/Enteritis. Stool studies were ordered. Patient was started on IVF and IV Flagyl. There was a concern of possible mesenteric ischemia given his polycythemia and h/o taking testosterone, upon talking to radiologist, no obvious findings suggestive of mesenteric ischemia were found on CT scan. Plan was made to observe patient closely, if he doesn't improve would obtain CTA abdomen to better assess the vasculature. Patient symptoms improved, he was able to tolerate diet well and had no abdominal symptoms, so CTA was not obtained. Patients Lipase was normal next day. patient is being discharged as recommended to f/u with PC and GI specialist upon dc/ - Patient Data Vitals - Most Recent: Last Vital Signs Temp 36.2 C 12/15/18 12:00 Pulse 70 12/15/18 08:00 Resp 18 12/15/18 12:00 BP 134/66 12/15/18 12:00 Pulse Ox 96 12/15/18 12:02 Weight - Most Recent: 178.534 kg I&O - Last 24 hours: Intake & Output 12/14/18 12/15/18 12/15/18 22:59 06:59 14:59 Intake Total 755 170 Output Total 575 475 Balance 180 -305 Lab Results - Last 24 hrs: Laboratory Results - last 24 hr 12/14/18 12/15/18 12/15/18 Range/Units 07:29 05:15 05:15 WBC 8.56 (4.0-11.0) K/uL RBC 4.50 (4.50-5.90) M/uL Hgb 13.8 (13.0-17.0) g/dL Hct 42.6 (38.0-50.0) % MCV 94.7 (80.0-98.0) fL MCH 30.7 (27.0-32.0) pg MCHC 32.4 (31.0-37.0) g/dL RDW Std Deviation 46.2 (28.0-62.0) fl RDW Coeff of Helen 13 (11.0-15.0) % Plt Count 250 (150-400) K/uL MPV 9.80 (7.40-12.00) fL Neut % (Auto) 55.2 (48.0-80.0) % Lymph % (Auto) 27.9 (16.0-40.0) % [place] % (Auto) 5.4 (0.0-15.0) % Eos % (Auto) 11.3 H (0.0-7.0) % Baso % (Auto) 0.2 (0.0-1.5) % Neut # (Auto) 4.7 (1.4-5.7) K/uL Lymph # (Auto) 2.4 (0.6-2.4) K/uL [place] # (Auto) 0.5 (0.0-0.8) K/uL Eos # (Auto) 1.0 H (0.0-0.7) K/uL Baso # (Auto) 0.0 (0.0-0.1) K/uL Nucleated RBC % 0.0 /100WBC Nucleated RBCs # 0 K/uL Sodium 139 (136-148) mmol/L Potassium 3.9 (3.5-5.1) mmol/L Chloride 105 (98-107) mmol/L Carbon Dioxide 26.8 (21.0-32.0) mmol/L BUN 17 (7.0-18.0) mg/dL Creatinine 1.0 (0.8-1.3) mg/dL Est Cr Clr Drug Dosing 117.63 mL/min Estimated GFR (MDRD) > 60.0 ml/min Glucose 131 H (74-106) mg/dL Hemoglobin A1c 6.2 (4.5-6.2) % Calcium 8.2 L (8.5-10.1) mg/dL Phosphorus 3.9 (2.6-4.7) mg/dL Magnesium 1.7 L (1.8-2.4) mg/dL Triglycerides 309 H (0-200) mg/dL Cholesterol 179 (50-200) mg/dL LDL Cholesterol, Calc 90 (60-180) mg/dL VLDL Cholesterol 61 H (5-55) mg/dL HDL Cholesterol 27 L (40-60) mg/dL Cholesterol/HDL Ratio 6.6 H (3.3-6.0) Lipase 112 (73-393) U/L Med Orders - Current: Current Medications Albuterol/Ipratropium (Duoneb 3.0-0.5 Mg/3 Ml) 3 ml NEB Q4HRRT PRN PRN Reason: Shortness Of Breath/wheezing Heparin Sodium (Porcine) (Heparin Sodium) 5,000 units SUBCUT Q8H [facility] Last Admin: 12/15/18 12:54 Dose: 5,000 units Sodium Chloride (Normal Saline) 1,000 mls @ 125 mls/hr IV ASDIRECTED [facility] Last Admin: 12/15/18 10:05 Dose: 150 mls/hr Pantoprazole Sodium 40 mg/ (Sodium Chloride) 10 mls @ 300 mls/hr IV DAILY [facility] Last Admin: 12/15/18 10:10 Dose: 300 mls/hr Metronidazole 500 mg/ Premix 100 mls @ 100 mls/hr IV Q8H [facility] Last Admin: 12/15/18 14:02 Dose: 100 mls/hr Ondansetron HCl (Zofran) 4 mg IVPUSH Q6H PRN PRN Reason: Nausea/Vomiting Ondansetron HCl (Zofran) 4 mg IVPUSH Q6H PRN PRN Reason: Nausea/Vomiting Sodium Chloride (Saline Flush) 10 ml FLUSH ASDIRECTED PRN PRN Reason: Keep Vein Open Sodium Chloride (Saline Flush) 2.5 ml FLUSH ASDIRECTED PRN PRN Reason: Keep Vein Open Discontinued Medications Fentanyl (Sublimaze) 50 mcg IVPUSH ONETIME ONE Stop: 12/14/18 08:01 Last Admin: 12/14/18 08:06 Dose: 50 mcg Sodium Chloride (Normal Saline) 1,000 mls @ 999 mls/hr IV STAT ONE Stop: 12/14/18 08:19 Last Admin: 12/14/18 07:38 Dose: 999 mls/hr Sodium Chloride (Normal Saline) Confirm Administered Dose 20 mls @ as directed .ROUTE .STK-MED ONE Stop: 12/14/18 07:32 Last Admin: 12/14/18 10:42 Dose: Not Given Metronidazole 500 mg/ Premix 100 mls @ 100 mls/hr IV ONETIME ONE Stop: 12/14/18 10:17 Last Admin: 12/14/18 09:25 Dose: 100 mls/hr Metronidazole 500 mg/ Premix 100 mls @ 100 mls/hr IV QID JANET Iopamidol (Isovue Multipack-370 (76%)) 100 ml IVPUSH ONETIME STA Stop: 12/14/18 08:27 Last Admin: 12/14/18 08:26 Dose: 100 ml Magnesium Oxide (Magnesium Oxide) 400 mg PO ONETIME ONE Stop: 12/15/18 09:06 Last Admin: 12/15/18 10:10 Dose: 400 mg Morphine Sulfate (Morphine) 4 mg IVPUSH ONETIME ONE Stop: 12/14/18 07:24 Last Admin: 12/14/18 07:35 Dose: 4 mg Morphine Sulfate (Morphine) 1 mg IVPUSH ONETIME ONE Stop: 12/14/18 14:45 Last Admin: 12/14/18 14:53 Dose: 1 mg Ondansetron HCl (Zofran) 4 mg IVPUSH ONETIME ONE Stop: 12/14/18 07:20 Last Admin: 12/14/18 07:38 Dose: 4 mg Ondansetron HCl (Zofran) Confirm Administered Dose 4 mg .ROUTE .STK-MED ONE Stop: 12/14/18 07:20 Last Admin: 12/14/18 07:55 Dose: Not Given Pantoprazole Sodium (Protonix Iv) 80 mg IVPUSH .BOLUS ONE Stop: 12/14/18 07:24 Last Admin: 12/14/18 07:35 Dose: 80 mg
[2018-12-15] MEDS ORDERED: metroNIDAZOLE/Normal Saline 500 MG in Premix Bag 1 BAG IV SCH (18:00)
== END 2018-12-15 15:40 | disposition home or self-care (01) ==
LOC: MW.ED 07:13 → MW.MS 09:31
PROVIDERS: ADMIT Student in an Organized Health Care Education/Training Program; ATTEND Student in an Organized Health Care Education/Training Program
DX: K52.9 Noninfective gastroenteritis and colitis, unspecified (principal); D75.1 Secondary polycythemia; G47.33 Obstructive sleep apnea (adult) (pediatric); I10 Essential (primary) hypertension; Z87.891 Personal history of nicotine dependence
CPT/HCPCS: 36415; 74177; 80048; 80053; 80061; 81003; 82150; 83036; 83605; 83690; 83735; 84100; 85025; 96361; 96365; 96366; 96372; 96375; 96376; 99285; A9270; C9113; G0378; J1644; J2270; J2405; J3010; J3490; J7040; J7050; Q9967

== ENCOUNTER 2018-12-20 20:30 | Emergency (ER) | payer BC ==
--- NOTE | 2018-12-20 20:55 | EDM.PDOC ---
ED HPI GENERAL MEDICAL PROBLEM - General Chief Complaint: Abdominal Pain Stated Complaint: PAIN Time Seen by Provider: 12/20/18 20:50 - History of Present Illness INITIAL COMMENTS - FREE TEXT/NARRATIVE: HISTORY AND PHYSICAL: History of present illness: Patient 33-year-old white male presents a concern of recent diagnosis in isolation for pancreatitis and colitis who comes back with recurrent upper abdominal pain. No vomiting diarrhea or other complaints Review of systems: As per history of present illness and below otherwise all systems reviewed and negative. Past medical history: As per history of present illness and as reviewed below otherwise noncontributory. Surgical history: As per history of present illness and as reviewed below otherwise noncontributory. Social history: No reported history of drug or alcohol abuse. Family history: As per history of present illness and as reviewed below otherwise noncontributory. Physical exam: HEENT: Atraumatic, normocephalic, pupils reactive, negative for conjunctival pallor or scleral icterus, mucous membranes moist, throat clear, neck supple, nontender, trachea midline. Lungs: Clear to auscultation, breath sounds equal bilaterally, chest nontender. Heart: S1S2, regular, negative for clicks, rubs, or JVD. Abdomen: Soft, nondistended, tenderness palpation across upper abdomen. Negative for masses or hepatosplenomegaly. Negative for costovertebral tenderness. Pelvis: Stable nontender. Genitourinary: Deferred. Rectal: Deferred. Extremities: Atraumatic, negative for cords or calf pain. Neurovascular unremarkable. Neuro: Awake, alert, oriented. Cranial nerves II through XII unremarkable. Cerebellum unremarkable. Motor and sensory unremarkable throughout. Exam nonfocal. Diagnostics: CBC CMP lipase CT abdomen and pelvis chest x-ray UA UDS Therapeutics: #1 saline 1 L bolus Impression: #1 abdominal pain #2 history of colitis #3 history of pancreatitis Definitive disposition and diagnosis as appropriate pending reevaluation and review of above. abdomen Pain Score (Numeric/FACES): 6 - Related Data Allergies Allergy/AdvReac Type Severity Reaction Status Date / Time No Known Allergies Allergy Verified 12/20/18 20:38 Home Meds: Home Meds Ondansetron [Zofran ODT] 4 mg PO Q8H PRN #5 tab.dis 12/15/18 [Rx] Pantoprazole [ProTONIX] 40 mg PO DAILY #15 tab.cr 10/14/19 [Rx] metroNIDAZOLE [Flagyl] 500 mg PO Q8H 5 Days #14 tab 12/15/18 [Rx] Past Medical History HEENT History: Reports: None Cardiovascular History: Reports: Hypertension Respiratory History: Reports: Sleep Apnea, Other (See Below) Other Respiratory History: on CPAP during the night Gastrointestinal History: Reports: Pancreatitis Genitourinary History: Reports: None Musculoskeletal History: Reports: None Neurological History: Reports: None Psychiatric History: Reports: Anxiety, Depression Endocrine/Metabolic History: Reports: None Hematologic History: Reports: None Immunologic History: Reports: None Oncologic (Cancer) History: Reports: None Dermatologic History: Reports: None - Infectious Disease History Infectious Disease History: Reports: None - Past Surgical History HEENT Surgical History: Reports: None Cardiovascular Surgical History: Reports: None Respiratory Surgical History: Reports: None GI Surgical History: Reports: Hernia, Abdominal Male Surgical History: Reports: None Endocrine Surgical History: Reports: None Neurological Surgical History: Reports: None Musculoskeletal Surgical History: Reports: None Oncologic Surgical History: Reports: None Dermatological Surgical History: Reports: None Social & Family History - Family History Family Medical History: Noncontributory - Tobacco Use Smoking Status *Q: Never Smoker Second Hand Smoke Exposure: No - Caffeine Use Caffeine Use: Reports: Coffee, Soda - Recreational Drug Use Recreational Drug Use: No ED ROS GENERAL - Review of Systems Review Of Systems: ROS reveals no pertinent complaints other than HPI. ED EXAM, GENERAL - Physical Exam Exam: See Below (dictation) Course - Vital Signs Last Recorded V/S: Last Vital Signs Temp 36.0 C 12/20/18 20:34 Pulse 98 12/20/18 22:37 Resp 16 12/20/18 22:37 BP 149/75 H 12/20/18 22:37 Pulse Ox 96 12/20/18 22:37 - Orders/Labs/Meds Labs: Laboratory Tests 12/20/18 12/20/18 12/20/18 Range/Units 21:00 21:00 21:00 WBC 12.05 H (4.0-11.0) K/uL RBC 5.12 (4.50-5.90) M/uL Hgb 15.9 (13.0-17.0) g/dL Hct 47.4 (38.0-50.0) % MCV 92.6 (80.0-98.0) fL MCH 31.1 (27.0-32.0) pg MCHC 33.5 (31.0-37.0) g/dL RDW Std Deviation 44.8 (28.0-62.0) fl RDW Coeff of Helen 13 (11.0-15.0) % Plt Count 299 (150-400) K/uL MPV 9.70 (7.40-12.00) fL Add Manual Diff YES Neutrophils % (Manual) 53 (48.0-80.0) % Band Neutrophils % 1 % Lymphocytes % (Manual) 31 (16.0-40.0) % Monocytes % (Manual) 6 (0.0-15.0) % Eosinophils % (Manual) 7 (0.0-7.0) % Metamyelocytes % 1 % Myelocytes % 1 % Nucleated RBC % 0.0 /100WBC Absolute Seg Neuts 6.4 H (1.4-5.7) Band Neutrophils # 0.1 Lymphocytes # (Manual) 3.7 H (0.6-2.4) Monocytes # (Manual) 0.7 (0.0-0.8) Eosinophils # (Manual) 0.8 H (0.0-0.7) Absolute Metamyelocyte 0.1 Absolute Myelocytes 0.1 Nucleated RBCs # 0 K/uL INR 0.95 Sodium 138 (136-148) mmol/L Potassium 4.0 (3.5-5.1) mmol/L Chloride 102 (98-107) mmol/L Carbon Dioxide 26.1 (21.0-32.0) mmol/L BUN 17 (7.0-18.0) mg/dL Creatinine 1.1 (0.8-1.3) mg/dL Est Cr Clr Drug Dosing 106.94 mL/min Estimated GFR (MDRD) > 60.0 ml/min Glucose 205 H (74-106) mg/dL Calcium 9.0 (8.5-10.1) mg/dL Total Bilirubin 0.3 (0.2-1.0) mg/dL AST 28 (15-37) IU/L ALT 88 H (14-63) IU/L Alkaline Phosphatase 72 (46-116) U/L Total Protein 7.7 (6.4-8.2) g/dL Albumin 3.5 (3.4-5.0) g/dL Globulin 4.2 H (2.6-4.0) g/dL Albumin/Globulin Ratio 0.8 L (0.9-1.6) Lipase 398 H (73-393) U/L Urine Color Urine Appearance Urine pH (5.0-8.0) Ur Specific Seth (1.001-1.035) Urine Protein (NEGATIVE) mg/dL Urine Glucose (UA) (NEGATIVE) mg/dL Urine Ketones (NEGATIVE) mg/dL Urine Occult Blood (NEGATIVE) Urine Nitrite (NEGATIVE) Urine Bilirubin (NEGATIVE) Urine Urobilinogen (<2.0) EU/dL Ur Leukocyte Esterase (NEGATIVE) Urine Opiates Screen (NEGATIVE) Ur Oxycodone Screen (NEGATIVE) Urine Methadone Screen (NEGATIVE) Ur Barbiturates Screen (NEGATIVE) Ur Phencyclidine Scrn (NEGATIVE) Ur Amphetamine Screen (NEGATIVE) U Methamphetamines Scrn (NEGATIVE) U Benzodiazepines Scrn (NEGATIVE) U Cocaine Metab Screen (NEGATIVE) U Marijuana (THC) Screen (NEGATIVE) Ethyl Alcohol <3 mg/dL 12/20/18 12/20/18 Range/Units 21:05 21:05 WBC (4.0-11.0) K/uL RBC (4.50-5.90) M/uL Hgb (13.0-17.0) g/dL Hct (38.0-50.0) % MCV (80.0-98.0) fL MCH (27.0-32.0) pg MCHC (31.0-37.0) g/dL RDW Std Deviation (28.0-62.0) fl RDW Coeff of Helen (11.0-15.0) % Plt Count (150-400) K/uL MPV (7.40-12.00) fL Add Manual Diff Neutrophils % (Manual) (48.0-80.0) % Band Neutrophils % % Lymphocytes % (Manual) (16.0-40.0) % Monocytes % (Manual) (0.0-15.0) % Eosinophils % (Manual) (0.0-7.0) % Metamyelocytes % % Myelocytes % % Nucleated RBC % /100WBC Absolute Seg Neuts (1.4-5.7) Band Neutrophils # Lymphocytes # (Manual) (0.6-2.4) Monocytes # (Manual) (0.0-0.8) Eosinophils # (Manual) (0.0-0.7) Absolute Metamyelocyte Absolute Myelocytes Nucleated RBCs # K/uL INR Sodium (136-148) mmol/L Potassium (3.5-5.1) mmol/L Chloride (98-107) mmol/L Carbon Dioxide (21.0-32.0) mmol/L BUN (7.0-18.0) mg/dL Creatinine (0.8-1.3) mg/dL Est Cr Clr Drug Dosing mL/min Estimated GFR (MDRD) ml/min Glucose (74-106) mg/dL Calcium (8.5-10.1) mg/dL Total Bilirubin (0.2-1.0) mg/dL AST (15-37) IU/L ALT (14-63) IU/L Alkaline Phosphatase (46-116) U/L Total Protein (6.4-8.2) g/dL Albumin (3.4-5.0) g/dL Globulin (2.6-4.0) g/dL Albumin/Globulin Ratio (0.9-1.6) Lipase (73-393) U/L Urine Color YELLOW Urine Appearance CLEAR Urine pH 5.0 (5.0-8.0) Ur Specific Seth >= 1.030 (1.001-1.035) Urine Protein NEGATIVE (NEGATIVE) mg/dL Urine Glucose (UA) NEGATIVE (NEGATIVE) mg/dL Urine Ketones NEGATIVE (NEGATIVE) mg/dL Urine Occult Blood NEGATIVE (NEGATIVE) Urine Nitrite NEGATIVE (NEGATIVE) Urine Bilirubin NEGATIVE (NEGATIVE) Urine Urobilinogen 0.2 (<2.0) EU/dL Ur Leukocyte Esterase NEGATIVE (NEGATIVE) Urine Opiates Screen NEGATIVE (NEGATIVE) Ur Oxycodone Screen NEGATIVE (NEGATIVE) Urine Methadone Screen NEGATIVE (NEGATIVE) Ur Barbiturates Screen NEGATIVE (NEGATIVE) Ur Phencyclidine Scrn NEGATIVE (NEGATIVE) Ur Amphetamine Screen NEGATIVE (NEGATIVE) U Methamphetamines Scrn NEGATIVE (NEGATIVE) U Benzodiazepines Scrn NEGATIVE (NEGATIVE) U Cocaine Metab Screen NEGATIVE (NEGATIVE) U Marijuana (THC) Screen NEGATIVE (NEGATIVE) Ethyl Alcohol mg/dL Meds: Medications Discontinued Medications Generic Name Dose Route Start Last Admin Trade Name Freq PRN Reason Stop Dose Admin Hydromorphone HCl 1 mg 12/20/18 21:17 12/20/18 21:24 Dilaudid IVPUSH 12/20/18 21:18 1 mg ONETIME ONE Administration Sodium Chloride 1,000 mls @ 999 mls/hr 12/20/18 20:56 12/20/18 21:08 Normal Saline IV 12/20/18 21:56 999 mls/hr STAT ONE Administration Iopamidol 100 ml 12/20/18 22:02 12/20/18 22:06 Isovue-370 (76%) IVPUSH 12/20/18 22:03 100 ml ONETIME ONE Administration Ondansetron HCl 4 mg 12/20/18 21:17 12/20/18 21:24 Zofran IVPUSH 12/20/18 21:18 4 mg ONETIME ONE Administration Departure - Departure Time of Disposition: 23:59 Disposition: Home, Self-Care 01 Condition: Good Clinical Impression: Abdominal pain, Duodenitis, Pancreatitis - Discharge Information Referrals: PCP,None [Primary Care Provider] - Forms: ED Department Discharge Additional Instructions: The following information is given to patients seen in the emergency department who are being discharged to home. This information is to outline your options for follow-up care. We provide all patients seen in our emergency department with a follow-up referral. The need for follow-up, as well as the timing and circumstances, are variable depending upon the specifics of your emergency department visit. If you don't have a primary care physician on staff, we will provide you with a referral. We always advise you to contact your personal physician following an emergency department visit to inform them of the circumstance of the visit and for follow-up with them and/or the need for any referrals to a consulting specialist. The emergency department will also refer you to a specialist when appropriate. This referral assures that you have the opportunity for followup care with a specialist. All of these measure are taken in an effort to provide you with optimal care, which includes your followup. Under all circumstances we always encourage you to contact your private physician who remains a resource for coordinating your care. When calling for followup care, please make the office aware that this follow-up is from your recent emergency room visit. If for any reason you are refused follow-up, please contact the [facility] emergency department at and asked to speak to the emergency department charge nurse. Continue current meds follow primary medical doctor clear liquids as discussed avoiding alcohol return as needed as discussed
[2018-12-20] MEDS ORDERED: Sodium Chloride 0.9% 1,000 ML IV ONE (20:56)
[2018-12-20] MEDS ORDERED: Ondansetron 4 MG/2 ML SDV IVPUSH ONE (21:17)
[2018-12-20] MEDS ORDERED: HYDROmorphone 1 MG/ML Syringe IVPUSH ONE (21:17)
[2018-12-20 21:39] LABS: BLOOD UREA NITROGEN,BUN 17 mg/dL (7.0-18.0); CARBON DIOXIDE,CO2 26.1 mmol/L (21.0-32.0); CHLORIDE,CL 102 mmol/L (98-107); GLUCOSE RANDOM 205 mg/dL (74-106); LIPASE 398 U/L (73-393); SODIUM,NA 138 mmol/L (136-148)
[2018-12-20] MEDS ORDERED: Iopamidol 755 Mg/ML 100 ML Bottle IVPUSH ONE (22:02)
--- NOTE | 2018-12-20 22:16 | CR ---
INDICATION: Lower chest/upper abdominal pain TECHNIQUE: Chest 1 view. COMPARISON: None. FINDINGS: Cardiovascular and mediastinum: Heart size and vasculature are normal in caliber and appearance. Mediastinum is within normal limits. Lungs and pleural space: Lungs are clear. No sign of infiltrate or mass. No sign of pleural effusion. No pneumothorax. Bones and soft tissues: No significant findings. IMPRESSION: Unremarkable chest. Dictated by: Richmond Patel MD @ 12/20/2018 22:15:37 (Electronically Signed)
--- NOTE | 2018-12-20 23:06 | CT ---
INDICATION: 33-year-old male, abdominal pain. TECHNIQUE: CT abdomen and pelvis acquired with i.v. 100 mL Isovue 370. Coronal and sagittal reformats were obtained. COMPARISON: CT study dated 12/14/2018. FINDINGS: Manager Image CT images: Nonobstructive bowel gas pattern. Study somewhat limited by patient body size. Lower chest: Image lung bases are clear. No pleural effusions or free air. Liver: Unremarkable. Spleen: Unremarkable. Pancreas: Unremarkable. Gallbladder and bile ducts: Unremarkable. Kidneys: Unremarkable. No kidney or ureteral stones and no hydronephrosis seen. Adrenal glands: Unremarkable. GI tract: No bowel obstruction. No abnormal colonic wall thickening. Loops of small bowel are normal in caliber. No hiatal hernia or abnormal gastric or duodenal wall thickening. Duodenum crosses midline. No residual mesenteric fat stranding in the lower left central mesentery adjacent to small bowel loops, resolution from 6 days prior. No interloop ascites. Vascular: Unremarkable. No abnormal twisting of the mesenteric vessels. Normal orientation of the SMV and SMA. Portal vein branches, splenic vein, and SMV are patent. Lymph nodes: Unremarkable. Miscellaneous: Unremarkable. No pneumoperitoneum is seen. No significant ascites is noted. Pelvic Organs: Unremarkable. Bones: Unremarkable for age. IMPRESSION: 1. Interval improvement from recent CT study dated 12/14/2018. No bowel obstruction. Resolution of mesenteric stranding in the left lower quadrant adjacent to small bowel loops. There may be a minimal amount of small bowel wall thickening, consider improving small bowel enteritis from 12/14/2018. 2. Normal appendix. Dictated by Ruben Richardson MD @ 12/20/2018 11:04:32 PM Please note that all CT scans at this facility use dose modulation, iterative reconstruction, and/or weight-based dosing when appropriate to reduce radiation dose to as low as reasonably achievable. Dictated by: Ruben Richardson MD @ 12/20/2018 23:04:41 (Electronically Signed)
== END 2018-12-21 00:09 | disposition home or self-care (01) ==
LOC: MW.ED 20:30
DX: K85.90 Acute pancreatitis without necrosis or infection, unspecified (principal); K29.80 Duodenitis without bleeding; G47.30 Sleep apnea, unspecified; I10 Essential (primary) hypertension
CPT/HCPCS: 36415; 71045; 74177; 80053; 80305; 80320; 81003; 83690; 85025; 85610; 96361; 96374; 96375; 99284; J1170; J2405; J7040; Q9967; G0480

== ENCOUNTER 2018-12-21 03:27 | Observation (INO) | payer BC ==
[2018-12-21] MEDS ORDERED: Ondansetron 4 MG/2 ML SDV ONE (03:35)
[2018-12-21] MEDS ORDERED: Sodium Chloride 0.9% 1,000 ML IV ONE ×2 (03:48→04:39)
[2018-12-21] MEDS ORDERED: Ketorolac 30 MG/ML SDV IVPUSH ONE (03:48)
[2018-12-21] MEDS ORDERED: Ondansetron 4 MG/2 ML SDV IVPUSH ONE (03:48)
[2018-12-21] MEDS ORDERED: LORazepam 2 MG/ML SDV IVPUSH ONE (04:15)
--- NOTE | 2018-12-21 04:35 | EDM.PDOC ---
ED HPI GENERAL MEDICAL PROBLEM - General Chief Complaint: Abdominal Pain Stated Complaint: ABD PAIN Time Seen by Provider: 12/21/18 04:31 - History of Present Illness INITIAL COMMENTS - FREE TEXT/NARRATIVE: HISTORY AND PHYSICAL: History of present illness: Patient 33-year-old white male who was seen and admitted one week prior for pancreatitis and enteritis who was seen yesterday by myself with recurrence of the pain workup showed interval improvement of the CT regarding his left-sided mesenteric stranding he also had improvement of his lipase down from 900-300 he returns now with recurrence of the pain from the earlier visit. Review of systems: As per history of present illness and below otherwise all systems reviewed and negative. Past medical history: As per history of present illness and as reviewed below otherwise noncontributory. Surgical history: As per history of present illness and as reviewed below otherwise noncontributory. Social history: No reported history of drug or alcohol abuse. Family history: As per history of present illness and as reviewed below otherwise noncontributory. Physical exam: HEENT: Atraumatic, normocephalic, pupils reactive, negative for conjunctival pallor or scleral icterus, mucous membranes moist, throat clear, neck supple, nontender, trachea midline. Lungs: Clear to auscultation, breath sounds equal bilaterally, chest nontender. Heart: S1S2, regular, negative for clicks, rubs, or JVD. Abdomen: Soft, nondistended no localized tenderness Negative for masses or hepatosplenomegaly. Negative for costovertebral tenderness. Pelvis: Stable nontender. Genitourinary: Deferred. Rectal: Deferred. Extremities: Atraumatic, negative for cords or calf pain. Neurovascular unremarkable. Neuro: Awake, alert, oriented. Cranial nerves II through XII unremarkable. Cerebellum unremarkable. Motor and sensory unremarkable throughout. Exam nonfocal. Diagnostics: None Therapeutics: saline1 L bolus Toradol 30 mg IV Impression: #1 abdominal pain #2 resolving pancreatitis #3 resolving enteritis Definitive disposition and diagnosis as appropriate pending reevaluation and review of above. abdomen Pain Score (Numeric/FACES): 10 - Related Data Allergies Allergy/AdvReac Type Severity Reaction Status Date / Time No Known Allergies Allergy Verified 12/21/18 03:45 Home Meds: Home Meds Ondansetron [Zofran ODT] 4 mg PO Q8H PRN #5 tab.dis 12/15/18 [Rx] Pantoprazole [ProTONIX] 40 mg PO DAILY #15 tab.cr 12/15/18 [Rx] metroNIDAZOLE [Flagyl] 500 mg PO Q8H 5 Days #14 tab 12/15/18 [Rx] Past Medical History HEENT History: Reports: None Cardiovascular History: Reports: Hypertension Respiratory History: Reports: Sleep Apnea, Other (See Below) Other Respiratory History: on CPAP during the night Gastrointestinal History: Reports: Pancreatitis Genitourinary History: Reports: None Musculoskeletal History: Reports: None Neurological History: Reports: None Psychiatric History: Reports: Anxiety, Depression Endocrine/Metabolic History: Reports: None Hematologic History: Reports: None Immunologic History: Reports: None Oncologic (Cancer) History: Reports: None Dermatologic History: Reports: None - Infectious Disease History Infectious Disease History: Reports: None - Past Surgical History HEENT Surgical History: Reports: None Cardiovascular Surgical History: Reports: None Respiratory Surgical History: Reports: None GI Surgical History: Reports: Hernia, Abdominal Male Surgical History: Reports: None Endocrine Surgical History: Reports: None Neurological Surgical History: Reports: None Musculoskeletal Surgical History: Reports: None Oncologic Surgical History: Reports: None Dermatological Surgical History: Reports: None Social & Family History - Family History Family Medical History: Noncontributory - Tobacco Use Smoking Status *Q: Never Smoker Second Hand Smoke Exposure: No - Caffeine Use Caffeine Use: Reports: Coffee, Soda - Recreational Drug Use Recreational Drug Use: No ED ROS GENERAL - Review of Systems Review Of Systems: ROS reveals no pertinent complaints other than HPI. ED EXAM, GI/ABD - Physical Exam Exam: See Below (Dictation) Course - Vital Signs Last Recorded V/S: Last Vital Signs Temp 35.5 C 12/21/18 03:28 Pulse 87 12/21/18 03:28 Resp 18 12/21/18 03:28 BP 151/104 H 12/21/18 03:28 Pulse Ox 98 12/21/18 03:28 - Orders/Labs/Meds Orders: Active Orders 24 hr Category Date Time Status Sodium Chloride 0.9% [Normal Saline] 1,000 ml Med 12/21/18 03:48 Active IV .Bolus Medication Orders Sodium Chloride (Normal Saline) 1,000 mls @ 999 mls/hr IV .Bolus ONE Stop: 12/21/18 04:48 Last Admin: 12/21/18 03:52 Dose: 999 mls/hr Meds: Medications Generic Name Dose Route Start Last Admin Trade Name Freq PRN Reason Stop Dose Admin Sodium Chloride 1,000 mls @ 999 mls/hr 12/21/18 03:48 12/21/18 03:52 Normal Saline IV 12/21/18 04:48 999 mls/hr .Bolus ONE Administration Discontinued Medications Generic Name Dose Route Start Last Admin Trade Name Erasmo PRN Reason Stop Dose Admin Ketorolac Tromethamine 30 mg 12/21/18 03:48 12/21/18 03:52 Toradol IVPUSH 12/21/18 03:49 30 mg ONETIME ONE Administration Lorazepam 1 mg 12/21/18 04:15 12/21/18 04:20 Ativan IVPUSH 12/21/18 04:16 1 mg ONETIME ONE Administration Ondansetron HCl Confirm 12/21/18 03:35 12/21/18 03:53 Zofran Administered 12/21/18 03:36 Not Given Dose 4 mg .ROUTE .STK-MED ONE Ondansetron HCl 4 mg 12/21/18 03:48 12/21/18 03:53 Zofran IVPUSH 12/21/18 03:49 4 mg ONETIME ONE Administration Departure - Departure Time of Disposition: 04:35 Disposition: Home, Self-Care 01 Condition: Good Clinical Impression: Abdominal pain, Pancreatitis - Discharge Information Referrals: PCP,None [Primary Care Provider] - - My Orders Last 24 Hours: My Active Orders 12/21/18 03:48 Sodium Chloride 0.9% [Normal Saline] 1,000 ml IV .Bolus - Assessment/Plan Last 24 Hours: My Active Orders 12/21/18 03:48 Sodium Chloride 0.9% [Normal Saline] 1,000 ml IV .Bolus
[2018-12-21] MEDS ORDERED: Sodium Chloride 0.9% 1,000 ML IV SCH (04:45)
[2018-12-21] MEDS: Sodium Chloride 0.9% 1,000 ML IV SCH ×2 (06:33→20:11)
[2018-12-21] MEDS: HYDROmorphone 2 MG/ML Syringe IVPUSH PRN ×4 (07:00→18:03)
--- NOTE | 2018-12-21 07:59 | PCM.HP.2 ---
H&P History of Present Illness - General Date of Service: 12/21/18 Admit Problem/Dx: Admission Diagnosis/Problem Admission Diagnosis/Problem Abdominal pain Source of Information: Patient History Limitations: Reports: No Limitations - History of Present Illness Initial Comments - Free Text/Narative: The patient is a 33-year-old gentleman who was seen and admitted last week secondary to pancreatitis and mesenteric enteritis. The patient had been discharged after improvement. The patient then presented back to the emergency department yesterday and had been given medications, CT examination of his abdomen and pelvis and was sent home. The patient then re-presented with exacerbation of his abdominal pain today and was admitted secondary to exacerbation of pancreatitis. The patient reports that he had a bachelor's constitution party 2-1/2 weeks ago in which had consumed alcohol. The patient previously had examinations but did not show any signs of gallstones. Today the patient's lipase was elevated at 398. The patient reports that he has bandlike pain described as sharp and stabbing across his upper abdomen. The patient has had no specific aggravating or relieving factors for this. He is also denied nausea or vomiting. Onset of Symptoms: Reports: Gradual Duration of Symptoms: Reports: Day(s): Location: Reports: Abdomen Quality: Reports: Same as Previous Episode, Sharp, Stabbing Severity: Severe Improves with: Reports: Medication, Rest Worsens with: Reports: Eating Associated Symptoms: Reports: No Other Symptoms abdomen Pain Score (Numeric/FACES): 10 - Related Data Allergies/Adverse Reactions: Allergies Allergy/AdvReac Type Severity Reaction Status Date / Time No Known Allergies Allergy Verified 12/21/18 05:19 Home Medications: Home Meds Ondansetron [Zofran ODT] 4 mg PO Q8H PRN #5 tab.dis 12/15/18 [Rx] Pantoprazole [ProTONIX] 40 mg PO DAILY #15 tab.cr 12/15/18 [Rx] metroNIDAZOLE [Flagyl] 500 mg PO Q8H 5 Days #14 tab 12/15/18 [Rx] Past Medical History HEENT History: Reports: None Cardiovascular History: Reports: Hypertension Respiratory History: Reports: Sleep Apnea, Other (See Below) Other Respiratory History: on CPAP during the night Gastrointestinal History: Reports: Pancreatitis Genitourinary History: Reports: None Musculoskeletal History: Reports: None Neurological History: Reports: None Psychiatric History: Reports: Anxiety, Depression Endocrine/Metabolic History: Reports: None Hematologic History: Reports: None Immunologic History: Reports: None Oncologic (Cancer) History: Reports: None Dermatologic History: Reports: None - Infectious Disease History Infectious Disease History: Reports: None - Past Surgical History HEENT Surgical History: Reports: None Cardiovascular Surgical History: Reports: None Respiratory Surgical History: Reports: None GI Surgical History: Reports: Hernia, Abdominal Male Surgical History: Reports: None Endocrine Surgical History: Reports: None Neurological Surgical History: Reports: None Musculoskeletal Surgical History: Reports: None Oncologic Surgical History: Reports: None Dermatological Surgical History: Reports: None Social & Family History - Family History Family Medical History: Noncontributory - Tobacco Use Smoking Status *Q: Never Smoker Second Hand Smoke Exposure: No - Caffeine Use Caffeine Use: Reports: Coffee, Soda - Recreational Drug Use Recreational Drug Use: No H&P Review of Systems - Review of Systems: Review Of Systems: See Below General: Reports: No Symptoms HEENT: Reports: No Symptoms Pulmonary: Reports: No Symptoms Cardiovascular: Reports: No Symptoms Gastrointestinal: Reports: Abdominal Pain, Other (Acid reflux) Genitourinary: Reports: No Symptoms Musculoskeletal: Reports: No Symptoms Skin: Reports: No Symptoms Psychiatric: Reports: No Symptoms Neurological: Reports: No Symptoms Hematologic/Lymphatic: Reports: No Symptoms Immunologic: Reports: No Symptoms Exam - Exam Exam: See Below - Vital Signs Vital Signs: Last Vital Signs Temp 36.1 C 12/21/18 05:06 Pulse 84 12/21/18 05:06 Resp 18 12/21/18 05:06 BP 144/74 H 12/21/18 05:06 Pulse Ox 99 12/21/18 05:06 Weight: 180.53 kg - Exam Quality Assessment: No: Supplemental Oxygen General: Alert, Oriented, Cooperative, Mild Distress HEENT: Conjunctiva Clear, EACs Clear, EOMI, Hearing Intact, PERRLA. No: Mucosa Moist & [place] (Dry) Neck: Supple, Trachea Midline Lungs: Clear to Auscultation, Normal Respiratory Effort Cardiovascular: Regular Rate, Regular Rhythm, Normal S1, Normal S2 GI/Abdominal Exam: Normal Bowel Sounds, No Distention, Tender (Epigastrium), Other (Obese). No: Guarding, Rigid Back Exam: Normal Inspection, Full Range of Motion Extremities: Normal Inspection, No Pedal Edema Skin: Warm, Dry, Intact Neurological: Cranial Nerves Intact, Normal Speech, Normal Tone Neuro Extensive - Mental Status: Alert, Oriented x3 Neuro Extensive - Motor, Sensory, Reflexes: CN II-XII Intact Psychiatric: Alert, Normal Affect, Normal Mood - Problem List (1) Pancreatitis SNOMED Code(s): 14357574 ICD Code: K85.90 - ACUTE PANCREATITIS WITHOUT NECROSIS OR INFECTION, UNSP Status: Acute Priority: High Current Visit: Yes Qualifiers: Chronicity: acute Pancreatitis type: unspecified pancreatitis type Acute pancreatitis complication: no infection or necrosis Qualified Code(s): K85.90 - Acute pancreatitis without necrosis or infection, unspecified (2) Morbid obesity with BMI of 50.0-59.9, adult SNOMED Code(s): 455922063, 88042558641230 ICD Code: E66.01 - MORBID (SEVERE) OBESITY DUE TO EXCESS CALORIES; Z68.43 - BODY MASS INDEX (BMI) 50.0-59.9, ADULT Status: Chronic Priority: Medium Current Visit: Yes (3) Abdominal pain SNOMED Code(s): 16262123 ICD Code: R10.9 - UNSPECIFIED ABDOMINAL PAIN Status: Acute Priority: High Current Visit: Yes Qualifiers: Abdominal location: epigastric Qualified Code(s): R10.13 - Epigastric pain (4) Elevated lipase SNOMED Code(s): 940777773 ICD Code: R74.8 - ABNORMAL LEVELS OF OTHER SERUM ENZYMES Status: Acute Priority: High Current Visit: Yes (5) ULIS (obstructive sleep apnea) SNOMED Code(s): 70640002 ICD Code: G47.33 - OBSTRUCTIVE SLEEP APNEA (ADULT) (PEDIATRIC) Status: Chronic Priority: High Current Visit: Yes Problem List Initiated/Reviewed/Updated: Yes Orders Last 24hrs: Active Orders 24 hr Category Date Time Status Patient Status [ADT] Stat ADT 12/21/18 04:38 Active NPO Now [Nothing per Oral Now Diet] [DIET] Diet 12/21/18 Breakfast Active HYDROmorphone [Dilaudid] Med 12/21/18 05:37 Active 1 mg IVPUSH Q3H PRN Sodium Chloride 0.9% [Normal Saline] 1,000 ml Med 12/21/18 05:45 Active IV ASDIRECTED Medication Orders Hydromorphone HCl (Dilaudid) 1 mg IVPUSH Q3H PRN PRN Reason: Pain Last Admin: 12/21/18 07:00 Dose: 1 mg Sodium Chloride (Normal Saline) 1,000 mls @ 125 mls/hr IV ASDIRECTED [facility] Last Admin: 12/21/18 06:33 Dose: 125 mls/hr Assessment/Plan Comment:: The patient is a 33-year-old gentleman who had been admitted secondary to abdominal pain due to pancreatitis. The patient's previous CT had shown that the previously noted mesenteric stranding at essentially resolved. The patient will be kept nothing by mouth except for ice chips and IV fluids consisting of normal saline at 125 mL per hour. The patient will also have his pain controlled with the use of IV narcotics. DVT prophylaxis will be completed with the use of Lovenox 40 mg subcutaneous on a daily basis. The patient has been encouraged to ambulate. Depending upon the patient's symptomology he will likely have his diet advanced tomorrow. The patient also had triglycerides were elevated at 309 mg/dL and this is not likely the cause of the patient's pancreatitis. The patient should be appropriate for discharge in 1-2 days. Repeat laboratory studies been ordered. - Mortality Measure Prognosis:: Good
[2018-12-21] MEDS ORDERED: Ondansetron 4 MG/2 ML SDV IVPUSH PRN (08:03)
[2018-12-21] MEDS: Enoxaparin 40 MG/0.4 ML Syringe SUBCUT SCH (08:51)
[2018-12-21] MEDS: Ranitidine 15 MG/ML Syrup 10 ML UD Cup PO SCH ×2 (09:14→20:12)
[2018-12-21] MEDS: Insulin Aspart 100 Units/ML 3 ML Pen SUBCUT SCH ×2 (12:29→17:50)
[2018-12-22] MEDS: Sodium Chloride 0.9% 1,000 ML IV SCH (04:00)
[2018-12-22 06:10] LABS: BLOOD UREA NITROGEN,BUN 17 mg/dL (7.0-18.0); CARBON DIOXIDE,CO2 26.8 mmol/L (21.0-32.0); CHLORIDE,CL 105 mmol/L (98-107); GLUCOSE RANDOM 129 mg/dL (74-106); POTASSIUM,K 4.2 mmol/L (3.5-5.1); SODIUM,NA 140 mmol/L (136-148)
[2018-12-22] MEDS: HYDROmorphone 2 MG/ML Syringe IVPUSH PRN (06:18)
[2018-12-22] MEDS ORDERED: HYDROmorphone 1 MG/ML Syringe IVPUSH PRN (07:30)
[2018-12-22] MEDS: Insulin Aspart 100 Units/ML 3 ML Pen SUBCUT SCH ×2 (07:44→12:42)
[2018-12-22] MEDS: Enoxaparin 40 MG/0.4 ML Syringe SUBCUT SCH (08:02)
[2018-12-22] MEDS ORDERED: Morphine 2 MG/ML Syringe IVPUSH PRN (08:55)
[2018-12-22] MEDS ORDERED: Famotidine 20 MG Tab PO SCH (09:00)
[2018-12-22] MEDS ORDERED: Ketorolac 30 MG/ML SDV IVPUSH PRN (10:31)
--- NOTE | 2018-12-22 11:00 | PCM.PN ---
- General Info Date of Service: 12/22/18 Subjective Update: 33 y/o male admitted for acute pancreatitis. This morning he is doing better with pain. Rates pain 5/10. However, some intermittent discomfort. No vomiting, diarrhea. - Patient Data Vitals - Most Recent: Last Vital Signs Temp 36.5 C 12/22/18 07:33 Pulse 65 12/22/18 07:33 Resp 18 12/22/18 07:33 BP 128/64 12/22/18 07:33 Pulse Ox 96 12/22/18 07:33 Weight - Most Recent: 180.53 kg I&O - Last 24 Hours: Intake & Output 12/21/18 12/22/18 12/22/18 22:59 06:59 14:59 Intake Total 0 1351 Output Total 700 575 Balance -700 776 Lab Results Last 24 Hours: Laboratory Results - last 24 hr 12/21/18 12/21/18 12/22/18 Range/Units 12:03 16:23 05:30 WBC 9.52 (4.0-11.0) K/uL RBC 4.53 (4.50-5.90) M/uL Hgb 13.8 (13.0-17.0) g/dL Hct 42.9 (38.0-50.0) % MCV 94.7 (80.0-98.0) fL MCH 30.5 (27.0-32.0) pg MCHC 32.2 (31.0-37.0) g/dL RDW Std Deviation 47.1 (28.0-62.0) fl RDW Coeff of Helen 14 (11.0-15.0) % Plt Count 253 (150-400) K/uL MPV 9.70 (7.40-12.00) fL Add Manual Diff YES Neutrophils % (Manual) 52 (48.0-80.0) % Band Neutrophils % 1 % Lymphocytes % (Manual) 26 (16.0-40.0) % Monocytes % (Manual) 7 (0.0-15.0) % Eosinophils % (Manual) 14 H (0.0-7.0) % Nucleated RBC % 0.0 /100WBC Absolute Seg Neuts 5.0 (1.4-5.7) Band Neutrophils # 0.1 Lymphocytes # (Manual) 2.5 H (0.6-2.4) Monocytes # (Manual) 0.7 (0.0-0.8) Eosinophils # (Manual) 1.3 H (0.0-0.7) Nucleated RBCs # 0 K/uL Sodium (136-148) mmol/L Potassium (3.5-5.1) mmol/L Chloride (98-107) mmol/L Carbon Dioxide (21.0-32.0) mmol/L BUN (7.0-18.0) mg/dL Creatinine (0.8-1.3) mg/dL Est Cr Clr Drug Dosing mL/min Estimated GFR (MDRD) ml/min Glucose (74-106) mg/dL POC Glucose 90 85 (60-110) mg/dL Calcium (8.5-10.1) mg/dL Total Bilirubin (0.2-1.0) mg/dL AST (15-37) IU/L ALT (14-63) IU/L Alkaline Phosphatase (46-116) U/L Total Protein (6.4-8.2) g/dL Albumin (3.4-5.0) g/dL Globulin (2.6-4.0) g/dL Albumin/Globulin Ratio (0.9-1.6) 12/22/18 12/22/18 Range/Units 05:30 05:57 WBC (4.0-11.0) K/uL RBC (4.50-5.90) M/uL Hgb (13.0-17.0) g/dL Hct (38.0-50.0) % MCV (80.0-98.0) fL MCH (27.0-32.0) pg MCHC (31.0-37.0) g/dL RDW Std Deviation (28.0-62.0) fl RDW Coeff of Helen (11.0-15.0) % Plt Count (150-400) K/uL MPV (7.40-12.00) fL Add Manual Diff Neutrophils % (Manual) (48.0-80.0) % Band Neutrophils % % Lymphocytes % (Manual) (16.0-40.0) % Monocytes % (Manual) (0.0-15.0) % Eosinophils % (Manual) (0.0-7.0) % Nucleated RBC % /100WBC Absolute Seg Neuts (1.4-5.7) Band Neutrophils # Lymphocytes # (Manual) (0.6-2.4) Monocytes # (Manual) (0.0-0.8) Eosinophils # (Manual) (0.0-0.7) Nucleated RBCs # K/uL Sodium 140 (136-148) mmol/L Potassium 4.2 (3.5-5.1) mmol/L Chloride 105 (98-107) mmol/L Carbon Dioxide 26.8 (21.0-32.0) mmol/L BUN 17 (7.0-18.0) mg/dL Creatinine 1.0 (0.8-1.3) mg/dL Est Cr Clr Drug Dosing 117.63 mL/min Estimated GFR (MDRD) > 60.0 ml/min Glucose 129 H (74-106) mg/dL POC Glucose 118 H (60-110) mg/dL Calcium 8.1 L (8.5-10.1) mg/dL Total Bilirubin 0.3 (0.2-1.0) mg/dL AST 23 (15-37) IU/L ALT 55 (14-63) IU/L Alkaline Phosphatase 46 (46-116) U/L Total Protein 6.2 L (6.4-8.2) g/dL Albumin 2.8 L (3.4-5.0) g/dL Globulin 3.4 (2.6-4.0) g/dL Albumin/Globulin Ratio 0.8 L (0.9-1.6) Med Orders - Current: Current Medications Enoxaparin Sodium (Lovenox) 40 mg SUBCUT Q24H [facility] Last Admin: 12/22/18 08:02 Dose: 40 mg Famotidine (Pepcid) 20 mg PO BID [facility] Last Admin: 12/22/18 08:02 Dose: 20 mg Sodium Chloride (Normal Saline) 1,000 mls @ 200 mls/hr IV ASDIRECTED [facility] Last Admin: 12/22/18 04:00 Dose: 125 mls/hr Insulin Aspart (Novolog) 0 unit SUBCUT TIDAC [facility]; Protocol Last Admin: 12/22/18 07:44 Dose: Not Given Ketorolac Tromethamine (Toradol) 30 mg IVPUSH Q6H PRN PRN Reason: Pain Ondansetron HCl (Zofran) 4 mg IVPUSH Q4H PRN PRN Reason: Nausea/Vomiting Discontinued Medications Hydromorphone HCl (Dilaudid) 1 mg IVPUSH Q3H PRN PRN Reason: Pain Last Admin: 12/22/18 06:18 Dose: 1 mg Hydromorphone HCl (Dilaudid) 1 mg IVPUSH Q3H PRN PRN Reason: Pain Sodium Chloride (Normal Saline) 1,000 mls @ 999 mls/hr IV .Bolus ONE Stop: 12/21/18 04:48 Last Admin: 12/21/18 03:52 Dose: 999 mls/hr Sodium Chloride (Normal Saline) 1,000 mls @ 999 mls/hr IV .Bolus ONE Stop: 12/21/18 05:39 Last Admin: 12/21/18 04:41 Dose: Not Given Sodium Chloride (Normal Saline) 1,000 mls @ 125 mls/hr IV ASDIRECTED [facility] Last Admin: 12/21/18 04:46 Dose: 125 mls/hr Ketorolac Tromethamine (Toradol) 30 mg IVPUSH ONETIME ONE Stop: 12/21/18 03:49 Last Admin: 12/21/18 03:52 Dose: 30 mg Lorazepam (Ativan) 1 mg IVPUSH ONETIME ONE Stop: 12/21/18 04:16 Last Admin: 12/21/18 04:20 Dose: 1 mg Morphine Sulfate (Morphine) 2 mg IVPUSH Q2H PRN PRN Reason: Pain Last Admin: 12/22/18 09:17 Dose: 2 mg Ondansetron HCl (Zofran) Confirm Administered Dose 4 mg .ROUTE .STK-MED ONE Stop: 12/21/18 03:36 Last Admin: 12/21/18 03:53 Dose: Not Given Ondansetron HCl (Zofran) 4 mg IVPUSH ONETIME ONE Stop: 12/21/18 03:49 Last Admin: 12/21/18 03:53 Dose: 4 mg Ranitidine HCl (Zantac) 150 mg PO BID [facility] Last Admin: 12/21/18 20:12 Dose: 150 mg - Exam General: Alert, Oriented, Cooperative, No Acute Distress Lungs: Clear to Auscultation, Normal Respiratory Effort. No: Crackles, Wheezing Cardiovascular: Regular Rate, Regular Rhythm GI/Abdominal Exam: Other (soft, tender in periumbilical area. No rebound.) Extremities: Normal Inspection, No Pedal Edema Skin: Warm, Dry - Problem List Review Problem List Initiated/Reviewed/Updated: Yes - My Orders Last 24 Hours: My Active Orders 12/22/18 10:31 Ketorolac [Toradol] 30 mg IVPUSH Q6H PRN 12/23/18 05:11 BASIC METABOLIC PANEL,BMP [CHEM] AM CBC WITH AUTO DIFF [HEME] AM - Plan Plan:: A: 1. Acute pancreatitis 2. Morbid obesity 3. PMH prediabetes, hypertriglyceridemia P: 1. Acute pancreatitis, improving. Went up on NS fluids to 200 ml/hr. advance diet to clear liquid and advance as tolerated. Possibly DC later today. 2. PMH prediabetes, hypertriglyceridemia. Will need to follow-up with PCP for management. Dispo: likely today or tomorrow
--- NOTE | 2018-12-22 15:16 | PCM.DCSUM1 ---
Discharge Summary - Hospital Course Free Text/Narrative:: 33 y/o male admitted for acute pancreatitis. He was put NPO and started on IV fluids and pain control. His pain improved but still had some intermittent pain. He remained afebrile. No nausea or vomiting, diarrhea. He did tolerate some broth and jello. He wanted to go home so he was discharged home with instructions to advance diet as tolerated. Rest and stay hydrated. He was prescribed Wiggins 5mg PO Q8H PRN (#15). He was advised to follow-up with his scheduled PCP appointment in [place]. - Discharge Data Discharge Date: 12/22/18 Discharge Disposition: Home, Self-Care 01 Condition: Fair - Referral to Home Health Primary Care Physician: PCP None - Patient Instructions Diet: Clear Liquid Diet Activity: As Tolerated, No Strenuous Activities, Rest and Relax Today Notify Provider of: Fever, Increased Pain, Swelling and Redness, Nausea and/or Vomiting - Discharge Plan *PRESCRIPTION DRUG MONITORING PROGRAM REVIEWED*: No *COPY OF PRESCRIPTION DRUG MONITORING REPORT IN PATIENT SHIRA: No Prescriptions/Med Rec: Hydrocodone/Acetaminophen [Wiggins 5-325 Tablet] 1 each PO Q8H PRN #15 tablet PRN Reason: Pain Home Medications: Home Meds Ondansetron [Zofran ODT] 4 mg PO Q8H PRN #5 tab.dis 12/15/18 [Rx] Pantoprazole [ProTONIX] 40 mg PO DAILY #15 tab.cr 12/15/18 [Rx] metroNIDAZOLE [Flagyl] 500 mg PO Q8H 5 Days #14 tab 12/15/18 [Rx] Hydrocodone/Acetaminophen [Wiggins 5-325 Tablet] 1 each PO Q8H PRN #15 tablet [Rx] Patient Handouts: Acetaminophen; Hydrocodone tablets or capsules, Abdominal Pain, Adult, [id number], Acute Pancreatitis - Discharge Summary/Plan Comment DC Time >30 min.: No - Patient Data Vitals - Most Recent: Last Vital Signs Temp 36.3 C 12/22/18 11:00 Pulse 66 12/22/18 11:00 Resp 18 12/22/18 11:00 BP 137/73 12/22/18 11:00 Pulse Ox 96 12/22/18 11:00 Weight - Most Recent: 180.53 kg I&O - Last 24 hours: Intake & Output 12/22/18 12/22/18 12/22/18 06:59 14:59 22:59 Intake Total 1351 Output Total 575 Balance 776 Lab Results - Last 24 hrs: Laboratory Results - last 24 hr 12/21/18 12/22/18 12/22/18 Range/Units 16:23 05:30 05:30 WBC 9.52 (4.0-11.0) K/uL RBC 4.53 (4.50-5.90) M/uL Hgb 13.8 (13.0-17.0) g/dL Hct 42.9 (38.0-50.0) % MCV 94.7 (80.0-98.0) fL MCH 30.5 (27.0-32.0) pg MCHC 32.2 (31.0-37.0) g/dL RDW Std Deviation 47.1 (28.0-62.0) fl RDW Coeff of Helen 14 (11.0-15.0) % Plt Count 253 (150-400) K/uL MPV 9.70 (7.40-12.00) fL Add Manual Diff YES Neutrophils % (Manual) 52 (48.0-80.0) % Band Neutrophils % 1 % Lymphocytes % (Manual) 26 (16.0-40.0) % Monocytes % (Manual) 7 (0.0-15.0) % Eosinophils % (Manual) 14 H (0.0-7.0) % Nucleated RBC % 0.0 /100WBC Absolute Seg Neuts 5.0 (1.4-5.7) Band Neutrophils # 0.1 Lymphocytes # (Manual) 2.5 H (0.6-2.4) Monocytes # (Manual) 0.7 (0.0-0.8) Eosinophils # (Manual) 1.3 H (0.0-0.7) Nucleated RBCs # 0 K/uL Sodium 140 (136-148) mmol/L Potassium 4.2 (3.5-5.1) mmol/L Chloride 105 (98-107) mmol/L Carbon Dioxide 26.8 (21.0-32.0) mmol/L BUN 17 (7.0-18.0) mg/dL Creatinine 1.0 (0.8-1.3) mg/dL Est Cr Clr Drug Dosing 117.63 mL/min Estimated GFR (MDRD) > 60.0 ml/min Glucose 129 H (74-106) mg/dL POC Glucose 85 (60-110) mg/dL Calcium 8.1 L (8.5-10.1) mg/dL Total Bilirubin 0.3 (0.2-1.0) mg/dL AST 23 (15-37) IU/L ALT 55 (14-63) IU/L Alkaline Phosphatase 46 (46-116) U/L Total Protein 6.2 L (6.4-8.2) g/dL Albumin 2.8 L (3.4-5.0) g/dL Globulin 3.4 (2.6-4.0) g/dL Albumin/Globulin Ratio 0.8 L (0.9-1.6) 12/22/18 12/22/18 Range/Units 05:57 12:34 WBC (4.0-11.0) K/uL RBC (4.50-5.90) M/uL Hgb (13.0-17.0) g/dL Hct (38.0-50.0) % MCV (80.0-98.0) fL MCH (27.0-32.0) pg MCHC (31.0-37.0) g/dL RDW Std Deviation (28.0-62.0) fl RDW Coeff of Helen (11.0-15.0) % Plt Count (150-400) K/uL MPV (7.40-12.00) fL Add Manual Diff Neutrophils % (Manual) (48.0-80.0) % Band Neutrophils % % Lymphocytes % (Manual) (16.0-40.0) % Monocytes % (Manual) (0.0-15.0) % Eosinophils % (Manual) (0.0-7.0) % Nucleated RBC % /100WBC Absolute Seg Neuts (1.4-5.7) Band Neutrophils # Lymphocytes # (Manual) (0.6-2.4) Monocytes # (Manual) (0.0-0.8) Eosinophils # (Manual) (0.0-0.7) Nucleated RBCs # K/uL Sodium (136-148) mmol/L Potassium (3.5-5.1) mmol/L Chloride (98-107) mmol/L Carbon Dioxide (21.0-32.0) mmol/L BUN (7.0-18.0) mg/dL Creatinine (0.8-1.3) mg/dL Est Cr Clr Drug Dosing mL/min Estimated GFR (MDRD) ml/min Glucose (74-106) mg/dL POC Glucose 118 H 79 (60-110) mg/dL Calcium (8.5-10.1) mg/dL Total Bilirubin (0.2-1.0) mg/dL AST (15-37) IU/L ALT (14-63) IU/L Alkaline Phosphatase (46-116) U/L Total Protein (6.4-8.2) g/dL Albumin (3.4-5.0) g/dL Globulin (2.6-4.0) g/dL Albumin/Globulin Ratio (0.9-1.6) Med Orders - Current: Current Medications Enoxaparin Sodium (Lovenox) 40 mg SUBCUT Q24H [facility] Last Admin: 12/22/18 08:02 Dose: 40 mg Famotidine (Pepcid) 20 mg PO BID [facility] Last Admin: 12/22/18 08:02 Dose: 20 mg Sodium Chloride (Normal Saline) 1,000 mls @ 200 mls/hr IV ASDIRECTED [facility] Last Admin: 12/22/18 04:00 Dose: 125 mls/hr Insulin Aspart (Novolog) 0 unit SUBCUT TIDAC [facility]; Protocol Last Admin: 12/22/18 12:42 Dose: Not Given Ketorolac Tromethamine (Toradol) 30 mg IVPUSH Q6H PRN PRN Reason: Pain Last Admin: 12/22/18 12:38 Dose: 30 mg Ondansetron HCl (Zofran) 4 mg IVPUSH Q4H PRN PRN Reason: Nausea/Vomiting Discontinued Medications Hydromorphone HCl (Dilaudid) 1 mg IVPUSH Q3H PRN PRN Reason: Pain Last Admin: 12/22/18 06:18 Dose: 1 mg Hydromorphone HCl (Dilaudid) 1 mg IVPUSH Q3H PRN PRN Reason: Pain Sodium Chloride (Normal Saline) 1,000 mls @ 999 mls/hr IV .Bolus ONE Stop: 12/21/18 04:48 Last Admin: 12/21/18 03:52 Dose: 999 mls/hr Sodium Chloride (Normal Saline) 1,000 mls @ 999 mls/hr IV .Bolus ONE Stop: 12/21/18 05:39 Last Admin: 12/21/18 04:41 Dose: Not Given Sodium Chloride (Normal Saline) 1,000 mls @ 125 mls/hr IV ASDIRECTED [facility] Last Admin: 12/21/18 04:46 Dose: 125 mls/hr Ketorolac Tromethamine (Toradol) 30 mg IVPUSH ONETIME ONE Stop: 12/21/18 03:49 Last Admin: 12/21/18 03:52 Dose: 30 mg Lorazepam (Ativan) 1 mg IVPUSH ONETIME ONE Stop: 12/21/18 04:16 Last Admin: 12/21/18 04:20 Dose: 1 mg Morphine Sulfate (Morphine) 2 mg IVPUSH Q2H PRN PRN Reason: Pain Last Admin: 12/22/18 09:17 Dose: 2 mg Ondansetron HCl (Zofran) Confirm Administered Dose 4 mg .ROUTE .STK-MED ONE Stop: 12/21/18 03:36 Last Admin: 12/21/18 03:53 Dose: Not Given Ondansetron HCl (Zofran) 4 mg IVPUSH ONETIME ONE Stop: 12/21/18 03:49 Last Admin: 12/21/18 03:53 Dose: 4 mg Ranitidine HCl (Zantac) 150 mg PO BID [facility] Last Admin: 12/21/18 20:12 Dose: 150 mg
== END 2018-12-22 15:55 | disposition home or self-care (01) ==
LOC: MW.ED 03:27 → MW.MS 04:58
PROVIDERS: ADMIT Internal Medicine; ATTEND Internal Medicine
DX: K85.90 Acute pancreatitis without necrosis or infection, unspecified (principal); I10 Essential (primary) hypertension; E78.1 Pure hyperglyceridemia; E66.01 Morbid (severe) obesity due to excess calories; G47.33 Obstructive sleep apnea (adult) (pediatric); R73.03 Prediabetes; Z99.89 Dependence on other enabling machines and devices; Z79.899 Other long term (current) drug therapy; Z68.43 Body mass index [BMI] 50.0-59.9, adult
CPT/HCPCS: 36415; 80053; 82962; 85025; 96361; 96372; 96374; 96375; 96376; 99284; A9270; G0378; J1170; J1650; J1885; J2060; J2270; J2405; J7040